=== PATIENT | female | born 1970 | race Caucasian/White ===

== ENCOUNTER 2024-01-24 14:48 | Outpatient (OUT) | payer OTHER, SELFPAY ==
[2024-01-24 15:09] LABS: Hemoglobin 12.4 g/dL (12.0-16.0); Mean Corpuscular HGB Conc 31.8 g/dL (29.9-35.2); Mean Corpuscular Hemoglobin 28.6 pg (26.7-34.0); Mean Corpuscular Volume 89.9 fL (81.0-99.0); Platelet Count 296 10^3/uL (150-450); Red Blood Count 4.34 10^6/uL (4.20-5.40); Red Cell Distribution Width 12.9 % (11.0-15.0); White Blood Count 7.4 10^3/uL (4.0-11.0)
[2024-01-24 15:46] LABS: Alanine Aminotransferase 47 U/L (14-59); Albumin Globulin Ratio 0.9; Albumin Level 3.2 g/dL (3.4-5.0); Alkaline Phosphatase 54 U/L (46-116); Aspartate Amino Transferase 24 U/L (15-37); Bilirubin Direct 0.1 mg/dL (0.0-0.2); Bilirubin Total 0.2 mg/dL (0.2-1.0); Globulin 3.6 g/dL; Total Protein 6.8 g/dL (6.4-8.2)
== END 2024-01-24 14:49 | disposition home or self-care (01) ==
LOC: LAB 14:51
PROVIDERS: PCP Family Medicine; Visit Provider Psychiatry & Neurology Neurology
DX: G35 Multiple sclerosis (principal); G62.9 Polyneuropathy, unspecified; R79.89 Other specified abnormal findings of blood chemistry; G60.9 Hereditary and idiopathic neuropathy, unspecified; Z11.3 Encounter for screening for infections with a predominantly sexual mode of transmission; E53.1 Pyridoxine deficiency; I70.91 Generalized atherosclerosis; D51.3 Other dietary vitamin B12 deficiency anemia; M79.10 Myalgia, unspecified site; E78.5 Hyperlipidemia, unspecified
CPT/HCPCS: 36415; 80076; 85027

== ENCOUNTER 2025-06-25 06:47 | Outpatient (OUT) | payer OTHER, SELFPAY ==
--- OUTSIDE RECORDS SUMMARY | 2025-06-25 06:51 | XMS_ITS | Encounter Summary ---
Author Organization [facility] Address [address] [place] [address] Care Team Providers Care Paunch Trimmer Name Role Phone Vikki Disla MD Primary Care Provider [phone] Encounter Details Date Type Department Care Team ([facility] Contact Info) Description 04/17/2024 External Result Encounter [facility] [address] [address] Sherman Mayfield MD [address] Nawaf Francois [address] [address] Social History Tobacco Use Types Packs/Day Years Used Date Smoking Tobacco: Never Assessed Comments Unknown Sex and Gender Information Value Date Recorded Sex Assigned at Not on file Legal Sex Female 7:24 PM EDT Gender Identity Not on file Sexual Orientation Not on file documented as of this encounter Plan of Treatment Upcoming Encounters Date Type Department Care Team ([facility] Contact Info) Description 10/19/2025 4:15 PM EST Office Visit [facility] [address] [facility] [address] [place] [address] Sherman Mayfield MD [address] Nawaf Francois [address] [id number] documented as of this encounter Procedures Procedure Name Priority Date/Time Associated Diagnosis Comments MR BRAIN W AND WO CONTRAST (ROUTINE) 04/17/2024 1:25 PM EDT documented in this encounter Results * MR brain w and wo contrast routine (04/17/2024 1:25 PM EDT) Anatomical Region Laterality Modality Brain Magnetic Resonan ce 04/17/2024 1:25 PM EDT Narrative 04/17/2024 1:24 PM EDT THIS EXAM WAS PERFORMED AT [facility] MR BRAIN W WO CONT 04/17/2024 10:17 AM INDICATION: MS (multiple sclerosis) COMPARISON: None available. TECHNIQUE: Multiplanar multisequence MR images of the brain were obtained with and without intravenous contrast. Volumetric 3-D series were sent for NeuroQuant analysis. This is generated at an independent workstation, by a third alliance party vendor, to further assess anatomy. Images quality controlled under physician supervision. FINDINGS: BRAIN: There are multiple focal areas of increased FLAIR signal within the subcortical and deep white matter, with some lesions involving the periventricular white matter. No definite callososeptal lesions. No definite diffusion restricting or enhancing lesions. No definite posterior fossa involvement. NeuroQuant analysis demonstrates the lesion count of 14 within the white matter, predominantly the periventricular and deep white matter. VENTRICLES: Normal ventricular size. VASCULATURE: Patent major intracranial arterial vasculature. Patent major dural venous sinuses. ORBITS: Unremarkable. PARANASAL SINUSES: Visualized paranasal sinuses are well-aerated. TEMPORAL BONE: Well-aerated middle ears and visualized mastoid air cells. SOFT TISSUES: The visualized head and neck soft tissues are unremarkable. OSSEOUS STRUCTURES: Normal bone marrow signal. Visualized upper cervical spine is unremarkable. IMPRESSION: Multiple white matter lesions as described without definite current enhancing lesion. Approved by Resident Mandy Segura MD on 04/17/2024 12:27 PM IPraneeth DO have personally reviewed the image(s) and agree with and/or edited the report Finalized by Praneeth Vasques DO on 04/17/2024 1:24 PM Procedure Note Radiology, Radiologist, - 04/17/2024 THIS EXAM WAS PERFORMED AT [facility] MR BRAIN W WO CONT 04/17/2024 10:17 AM INDICATION: MS (multiple sclerosis) COMPARISON: None available. TECHNIQUE: Multiplanar multisequence MR images of the brain were obtainedwith and without intravenous contrast. Volumetric 3-D series were sent for NeuroQuant analysis. This is generatedat an independent workstation, by a third alliance party vendor, to further assessanatomy. Images quality controlled under physician supervision. FINDINGS: BRAIN: There are multiple focal areas of increased FLAIR signal within thesubcortical and deep white matter, with some lesions involving theperiventricular white matter. No definite callososeptal lesions. Nodefinite diffusion restricting or enhancing lesions. No definite posteriorfossa involvement. NeuroQuant analysis demonstrates the lesion count of 14within the white matter, predominantly the periventricular and deep whitematter. VENTRICLES: Normal ventricular size. VASCULATURE: Patent major intracranial arterial vasculature. Patent majordural venous sinuses. ORBITS: Unremarkable. PARANASAL SINUSES: Visualized paranasal sinuses are well-aerated. TEMPORAL BONE: Well-aerated middle ears and visualized mastoid aircells. SOFT TISSUES: The visualized head and neck soft tissues areunremarkable. OSSEOUS STRUCTURES: Normal bone marrow signal. Visualized upper cervicalspine is unremarkable. IMPRESSION: Multiple white matter lesions as described without definite currentenhancing lesion. Approved by Resident Mandy Segura MD on 04/17/2024 12:27 PM IPraneeth DO have personally reviewed the image(s) and agree withand/or edited the report Finalized by Praneeth Vasques DO on 04/17/2024 1:24 PM Sherman Mayfield MD IMG MRI PROCEDURES Final Result documented in this encounter Visit Diagnoses Not on filedocumented in this encounter Care Teams Paunch Trimmer Relationship Specialty Start Date End Date Vikki Disla MD [address] [place] [address] PCP - General Family Medicine 03/19/23 documented as of this encounter
--- OUTSIDE RECORDS SUMMARY | 2025-06-25 06:51 | XMS_ITS | Encounter Summary ---
Author Organization [facility] Address [address] [place] [address] Care Team Providers Care Database Admin Name Role Phone Vikki Disla MD Primary Care Provider [phone] Encounter Details Date Type Department Care Team (Late st Contact Info) Description 08/12/2024 Abstract [facility] [address] [facility] [address] [place] [id number] Vikki Disla MD 112 [facility] [address] [place] [address] Social History Tobacco Use Types Packs/Day Years Used Date Smoking Tobacco: Never Smokeless Tobacco: Never B1300 Health Literacy Answer Date Recor ded How often do you need to hav e someone help you when you read instructions, pamphlets, or other written material from your doctor or pharmacy? Never 07/29/2024 Social Connection and Isolat ion Panel [NHANES] Answer Date Recorded In a typical week, how many times do you talk on the phone with family, friends, or neighbors? Twice a week 07/29/2024 How often do you get togethe r with friends or relatives? Twice a week 07/29/2024 How often do you attend chur ch or yarsani services? More than 4 times per year 07/29/2024 Do you belong to any clubs o r organizations such as muslim groups, unions, fraternal or athletic groups, or school groups? Yes 07/29/2024 How often do you attend meet ings of the clubs or organizations you belong to? More than 4 times per year 07/29/2024 Are you , , di vorced, , never , or living with a partner? 07/29/2024 AUDIT-C Answer Date Recorded Q1: How often do you have a drink containing alcohol? Never 07/29/2024 Q2: How many drinks containi ng alcohol do you have on a typical day when you are drinking? Patient does not drink Q3: How often do you have si x or more drinks on one occasion? Never 07/29/2024 Overall Financial Resource Strain (CARDIA) Answe r Date Recorded How hard is it for you to pa y for the very basics like food, housing, medical care, and heating? Somewhat hard 07/29/2024 [facility] of Occupat ional [facility] - Occupational Stress Questionnaire Answer Date Recorded Do you feel stress - tense, restless, nervous, or anxious, or unable to sleep at night because your mind is troubled all the time - these days? Only a little 07/29/2024 Exercise Vital Sign Answer Date Recorde d On average, how many days pe r week do you engage in moderate to strenuous exercise (like a brisk walk)? Patient declined On average, how many minutes do you engage in exercise at this level? Patient declined 07/29/2024 Hunger Vital Sign Answer Date Recorded Within the past 12 months, y ou worried that your food would run out before you got the money to buy more. Sometimes true Within the past 12 months, t he food you bought just didn't last and you didn't have money to get more. Never true PRAPARE - Transportation Answer Date Re corded In the past 12 months, has l ack of transportation kept you from medical appointments or from getting medications? No 07/12 In the past 12 months, has l ack of transportation kept you from meetings, work, or from getting things needed for daily living? No 07/29/2024 Housing Stability Vital Sign Answer Teto e Recorded In the last 12 months, was t here a time when you were not able to pay the mortgage or rent on time? No 07/29/2024 Number of Times Moved in the Last Year Not on fi le 07/29/2024 At any time in the past 12 m [facility], were you homeless or living in a chcf (including now)? No 07/29/2024 Comments Unknown Sex and Gender Information Value Date Recorded Sex Assigned at Not on file Legal Sex Female 7:24 PM EDT Gender Identity Not on file Sexual Orientation Not on file documented as of this encounter Plan of Treatment Upcoming Encounters Date Type Department Care Team (Late st Contact Info) Description 10/19/2025 4:15 PM EST Office Visit [facility] [address] [facility] [address] [place] [address] Sherman Mayfield MD 4849 [facility] [address] [place], [place] [phone] documented as of this encounter Visit Diagnoses Not on filedocumented in this encounter Care Teams Database Admin Relationship Specialty Start Date End Date Vikki Disla MD 112 [facility] [address] [place], [place] [phone] PCP - General Family Medicine 03/19/23 documented as of this encounter
--- OUTSIDE RECORDS SUMMARY | 2025-06-25 06:51 | XMS_ITS | Clinical Summary ---
Author Organization [facility] tem Address [id number] [address] [place] [address] Care Team Providers Care Transport Manager Name Role Phone Unavailable Primary Care Provider Unavailabl e Allergies Active Allergy Reactions Criticality Noted Date Comments Morphine 04/17/2024 Social History Tobacco Use Types Packs/Day Years Used Date Smoking Tobacco: Never Assessed Comments Unknown Sex and Gender Information Value Date Recorded Sex Assigned at Not on file Legal Sex Female 9:09 AM EDT Gender Identity Not on file Sexual Orientation Not on file Last Filed Vital Signs Vital Sign Reading Time Taken Comments Blood Pressure - - Pulse - - Temperature - - Respiratory Rate - - Oxygen Saturation - - Inhaled Oxygen Concentration - - Weight 90.7 kg (200 lb) 04/17/2024 10:17 AM EDT Height - - Body Mass Index - - Plan of Treatment Health Maintenance Due Date Last Done Comments Depression Screening 1980 Tobacco Screening 1980 Adult BMI Screening 1986 Pap Smear 1989 Zoster (Shingles) Vaccine (1 of 2) 2018 DTaP,Tdap and Td Vaccines (2 - Td or Tdap) 01/03/2019 01/03/2009 Influenza Vaccine 07/12/2025 Medical Devices Not on file Insurance [employer]
--- OUTSIDE RECORDS SUMMARY | 2025-06-25 06:51 | XMS_ITS | Clinical Summary ---
Demographics Address [address] [place] [address] Home Phone Preferred Language en Marital Status Anabaptist Affiliation Unknown Race White Ethnic Group Unknown Author Organization [facility] Address [address] [place] [address] Phone Care Team Providers Care City Sanitarian Name Role Phone Vikki Disla MD Primary Care Provider [phone] Social History Tobacco Use Types Packs/Day Years Used Date Smoking Tobacco: Never Assessed Comments Unknown Sex and Gender Information Value Date Recorded Sex Assigned at Not on file Legal Sex Female 4:00 AM EST Gender Identity Not on file Sexual Orientation Not on file Plan of Treatment Not on file Care Teams City Sanitarian Relationship Specialty Start Date End Date Vikki Disla MD [address] [place] [address] PCP - General 11/18/20
--- OUTSIDE RECORDS SUMMARY | 2025-06-25 06:51 | XMS_ITS | Encounter Summary ---
Author Organization [facility] Address [address] [place] [address] Care Team Providers Care Maintenance Instructor Name Role Phone Vikki Disla MD Primary Care Provider [phone] Encounter Details Date Type Department Care Team (Late st Contact Info) Description 07/27/2024 Abstract [facility] 112 [facility] [address] [place] [phone] Vikki Disla MD 112 [facility] [address] [place] [address] Social History Tobacco Use Types Packs/Day Years Used Date Smoking Tobacco: Never Assessed B1300 Health Literacy Answer Date Recor ded [...] often do you attend chur ch or episcopalian services? More than 4 times per year 07/29/2024 Do you belong to any clubs o r organizations such as presybeterian groups, unions, fraternal or athletic groups, or [...] medical care, and heating? Somewhat hard 07/29/2024 [facility] [place] of Occupat ional Health - Occupational Stress Questionnaire Answer Date Recorded [...] any time in the past 12 m [facility], were you homeless or living in a fdc (including now)? No 07/29/2024 Comments Unknown Sex and Gender Information Value Date Recorded Sex Assigned at Not on file Legal Sex Female 7:24 PM EDT Gender Identity Not on file Sexual Orientation Not on file documented as of this encounter Functional Status * Audit-C Score Answer Date of Assessment Author 0 07/29/2024 2:42 PM EDT Mychart, Generic * Q1: How often do you have a drink containing alcohol? Answer Date of Assessment Author Never 07/29/2024 2:42 PM EDT Mychart, Generic * Q2: How many drinks containing alcohol do you have on a typical day when you are drinking? Answer Date of Assessment Author Patient does not drink 07/29/2024 2:42 PM EDT My chart, Generic * Q3: How often do you have six or more drinks on one occasion? Answer Date of Assessment Author Never 07/29/2024 2:42 PM EDT Mychart, Generic documented as of this encounter Plan of Treatment Upcoming Encounters Date Type Department Care Team (Late st Contact Info) Description 10/19/2025 4:15 PM EST Office Visit [facility] [address] [facility] [address] [place] [address] Sherman Mayfield MD 5321 [facility] [address] [place] [address] documented as of this encounter Visit Diagnoses Not on filedocumented in this encounter Care Teams Maintenance Instructor Relationship Specialty Start Date End Date Vikki Disla MD 112 [facility] [address] [place] [address] PCP - General Family Medicine 03/19/23 documented as of this encounter
--- OUTSIDE RECORDS SUMMARY | 2025-06-25 06:51 | XMS_ITS | Encounter Summary ---
Author Organization [facility] Address [address] [place] [address] Care Team Providers Care Crawler Crane Operator Name Role Phone Vikki Disla MD Primary Care Provider [phone] Encounter Details Date Type Department Care Team (Late st Contact Info) Description 08/21/2024 Abstract [facility] 112 [facility] 110 [place] [phone] Vikki Disla MD 112 [facility] [address] [place] [address] Social History Tobacco Use Types Packs/Day Years [...] often do you attend chur ch or gnosticism services? More than 4 times per year 07/29/2024 Do you belong to any clubs o r organizations such as orthodoxy groups, unions, fraternal or athletic groups, or [...] medical care, and heating? Somewhat hard 07/29/2024 [facility] of Occupat ional [facility] - Occupational Stress Questionnaire Answer Date Recorded [...] any time in the past 12 m [facility], were you homeless or living in a skilled nursing (including now)? No 07/29/2024 Comments Unknown Sex [...] [facility] [address] [facility] [address] [place] [address] Sherman Mayfield MD 6[address] [facility] [address] [place], [place] [phone] documented as of this encounter Visit Diagnoses Not on filedocumented in this encounter Care Teams Crawler Crane Operator Relationship Specialty Start Date End Date Vikki Disla MD 112 [facility] [address] [place], [place] [phone] PCP - General Family Medicine 03/19/23 documented as of this encounter
--- OUTSIDE RECORDS SUMMARY | 2025-06-25 06:51 | XMS_ITS | Clinical Summary ---
Author Organization [facility] Address [address] [place], [place] [id number] Care Team Providers Care Cereal Miller Name Role Phone Unavailable Primary Care Provider Unavailabl e Allergies Active Allergy Reactions Criticality Noted Date Comments Morphine Shortness of Breath 09/15/2008 Medications alendronate sodium(FOSAMAX 70 MG TAB)Indications: Disturbance of skin sensation 1 tab weekly 0 0 06/10/2008 Active gabapentin(NEURO NTIN 400 MG CAP)Indications: Disturbance of skin sensation Take one(1) tablet three times daily., total dose 500 mg po qd 0 09/15/2008 Active gabapentin(NEURO NTIN 100 MG CAP) Take one(1) tablet three times daily. 0 09/15/2008 Active Family History Medical History Relation Comments Cancer Father colon Thyroid Sister migraine [Other] Sister MS [Other] Other maternal cousin Relation Status Comments Father Sister Other Social History Tobacco Use Types Packs/Day Years Used Date Smoking Tobacco: Never Alcohol Use Standard Drinks/Week Comments No 0 (1 standard drink = 0.6 oz pur e alcohol) Comments Unknown Sex and Gender Information Value Date Recorded Sex Assigned at Not on file Legal Sex Female 8:15 AM EST Gender Identity Not on file Sexual Orientation Not on file Occupation Industry Job Start Date Job End Date homemaker Not on file Not on file Not on file Plan of Treatment Health Maintenance Due Date Last Done Comments Anxiety Screening 1986 Depression Screening 1986 HIV Screening 1986 Hepatitis C Screening 1986 DTaP,Tdap,Td Vaccine (1 - Tdap) 1987 Hepatitis B Vaccine (1 of 3 - 19+ 3-dose series) 10/22 Cervical Cancer Screening [address] Colonography 2013 Cologuard (FIT-DNA) 2013 Colonoscopy 2013 Colorectal Cancer Screening 2013 Diabetes Screening 2013 Fecal Occult Blood 2013 Lipid Screening 2013 Sigmoidoscopy 2013 Pneumococcal Vaccine: 50+ (1 of 1 - PCV) 2018 Shingrix Vaccine (1 of 2) 2018 Influenza Vaccine (#1) 2025 Insurance [employer]
--- OUTSIDE RECORDS SUMMARY | 2025-06-25 06:51 | XMS_ITS | Clinical Summary ---
Author Organization [facility] Address [address] [place] [address] Care Team Providers Care Computer Repair Technician Name Role Phone Vikki Disla MD Primary Care Provider [phone] Allergies Active Allergy Reactions Criticality Noted Date Comments Acetaminophen Hallucinations 07/26/2024 Morphine Shortness of breath High 09/15/2008 Other Reaction(s): shortness of breath/ hives Oxycodone Hallucinations 07/26/2024 Oxycodone-Acetaminophen Unknown 04/30/2023 Medications albuterol HFA 90 mcg/act inhalerIndications :Shortness of breath,Wheezing Inhale 2 puffs every 4 (four) hours if needed for wheezing or shortness of breath 18 g 07/30/20 24 025 Active Interferon Beta-1a (Rebif Rebidose) 44 MCG/0.5ML solution auto-injectorIndic ations:MS (multiple sclerosis) ([facility]) Inject 44 mcg under the skin 3 (three) times a week 12 mL 5 11/13/19 25 Active galcanezumab (Emgality) 120 MG/ML auto-injectorIndic ations:Migraine without aura and without status migrainosus, not intractable ADMINISTER 1 ML UNDER THE SKIN MONTHLY 1 mL 3 12/02/19 25 Active modafinil (Provigil) 200 MG tabletIndications: Shift work sleep disorder TAKE A HALF TABLET BY MOUTH EVERY MORNING, MAY INCREASE TO A HALF TABLET BY MOUTH TWICE A DAY NEEDED 30 tablet 5 04/22/20 25 Active ondansetron ODT (Zofran-ODT) 4 MG disintegrating tablet Take 4 mg by mouth Every 4 - 6 hours as needed for nausea 09/13/20 24 Active gabapentin (Neurontin) 400 MG capsuleIndications :Neurogenic pain Take 1 capsule (400 mg) by mouth in the morning and 1 capsule (400 mg) before bedtime. 180 capsule 1 04/22/20 25 Active citalopram (CeleXA) 20 MG tabletIndications: Mood disorder, drug-induced (HCC) Take 1 tablet (20 mg) by mouth Daily 90 tablet 1 04/22/20 25 Active cyclobenzaprine (Flexeril) 10 MG tabletIndications: Cervical paraspinal muscle spasm 2 tabs QHS 60 tablet 1 04/22/20 25 Active baclofen (Lioresal) 10 MG tabletIndications: Cervical paraspinal muscle spasm,MS (multiple sclerosis) (HCC) Take 1 tablet (10 mg) by mouth in the morning and 1 tablet (10 mg) before bedtime. 60 tablet 3 04/22/20 25 025 Active topiramate (Topamax) 50 MG tabletIndications: Migraine without aura, intractable, with status migrainosus Take 50 mg by mouth in the morning and 50 mg before bedtime. 60 tablet 5 06/01/20 25 026 Active Topamax 50 MG tablet 1 (one) time each day at the same time. 025 Discontin ued(Reord er) Active Problems Problem Noted Date Diagnosed Date Dizziness 02/23/2025 Acquired absence of both cervix and uterus 08/11 Elevated liver enzymes 08/11/2024 Liver nodule 08/11/2024 Non morbid obesity due to excess calories 2023 Paresthesia 08/11/2024 Severe acute respiratory syn drome coronavirus 2 (SARS-CoV-2) detected 08/11/2024 Abnormal laboratory test 08/11/2024 COVID-19 08/11/2024 Motion sickness 04/30/2023 MS (multiple sclerosis) 04/29/2023 Assessment & Plan (06/01/2025 5:12 PM EDT): (Continue current regimen.) Labs - CBC, LFTs q March, Nov. - incl now, none in 1 y Cancel 02/2025 MR. Plan redo MR brain spring, WITH comparison. LA ppw. Assessment & Plan (04/20/2025 4:48 PM EDT): See last note. Check if addendum to 04/2024 MR report ([place], comparing against 09/2021 & 02/2010 MR studies) has been done & get report. (Continue current regimen.) Labs - CBC, LFTs q March, Sep. Assessment & Plan (10/20/2024 4:26 PM EST): Send msg to interpreting radiologist (2nd req) - Please compare 04/2024 MR against 09/2021 & 02/2010 MR images (both [facility]) and made addendum to report? (Continue current regimen.) Labs - CBC, LFTs q March, Sep. Assessment & Plan (04/21/2024 2:30 PM EDT): Send msg to interpreting radiologist - could you please compare 04/2024 MR against 09/2021 & 02/2010 MR images (both [facility]) and made addendum to report? (Continue current regimen.) Labs - CBC, LFTs q March, Sep. Assessment & Plan (09/17/2023 4:49 PM EST): (Continue current regimen.) Labs - CBC, LFTs q March, Nov. Assessment & Plan (04/30/2023 4:17 PM EDT): (Continue current regimen.) Labs - CBC, LFTs q March, Sep. Migraine without aura, intractable, with status migrainosus 04/29/2023 Assessment & Plan (06/01/2025 5:12 PM EDT): Incr TPM to 50 bid (Rx written). Pt may take only 1 pill for 3 w, then bid in week 4 of galca. FMLA ppw. Orders: topiramate (Topamax) 50 MG tablet; Take 50 mg by mouth in the morning and 50 mg before bedtime. Assessment & Plan (04/20/2025 4:48 PM EDT): (Continue current regimen.) Assessment & Plan (10/20/2024 4:26 PM EST): (Continue current regimen.) Assessment & Plan (04/21/2024 2:30 PM EDT): (Continue current regimen.) Assessment & Plan (09/17/2023 4:51 PM EST): (Continue current regimen.) Assessment & Plan (04/30/2023 4:17 PM EDT): (Continue current regimen.) CAN (obstructive sleep apnea) 04/29/2023 Overview (04/30/2023): --- borderline. Assessment & Plan (06/01/2025 5:12 PM EDT): Plan redo PSG 2026. (Continue sleep positioning tx.) Assessment & Plan (04/20/2025 4:48 PM EDT): Plan redo PSG 2026. (Continue sleep positioning tx.) Assessment & Plan (10/20/2024 4:26 PM EST): Plan redo PSG 2026. (Continue sleep positioning tx.) Assessment & Plan (04/21/2024 2:28 PM EDT): Plan redo PSG 2026. (Continue sleep positioning tx.) Assessment & Plan (09/17/2023 5:02 PM EST): Plan redo PSG 2026. (Continue sleep positioning tx.) Assessment & Plan (04/30/2023 4:18 PM EDT): Plan redo PSG 2026. Implement sleep positioning tx! Cervical paraspinal muscle spasm 04/29/2023 Assessment & Plan (06/01/2025 5:12 PM EDT): Incr rotation home PT as again demonstrated to pt. Assessment & Plan (04/20/2025 4:48 PM EDT): Incr rotation home PT as again demonstrated to pt. Assessment & Plan (10/20/2024 4:26 PM EST): Incr home PT stefan rotation as demonstrated to pt. Assessment & Plan (04/21/2024 2:31 PM EDT): Incr home PT stefan rotation as demonstrated to pt. Assessment & Plan (09/17/2023 4:54 PM EST): Incr home PT stefan rotation as demonstrated to pt. Assessment & Plan (04/30/2023 4:19 PM EDT): (Continue home PT.) Shift work sleep disorder 04/29/2023 Overview (04/30/2023): --- causing diurnal hypersomnia G47.10. Assessment & Plan (06/01/2025 5:12 PM EDT): (Continue current regimen.) Assessment & Plan (04/20/2025 4:48 PM EDT): (Continue current regimen.) Assessment & Plan (10/20/2024 4:26 PM EST): (Continue current regimen.) Assessment & Plan (04/21/2024 2:30 PM EDT): (Continue current regimen.) Assessment & Plan (09/17/2023 4:50 PM EST): Recommend decreasing citalopram to 1/2 pill due to interaction with modafinil. Assessment & Plan (04/30/2023 4:21 PM EDT): Add modafinil 100, may incr to bid. Neurogenic pain 04/29/2023 Assessment & Plan (06/01/2025 5:12 PM EDT): (Continue current regimen.) Assessment & Plan (04/20/2025 4:48 PM EDT): (Continue current regimen.) Assessment & Plan (10/20/2024 4:26 PM EST): (Continue current regimen.) Assessment & Plan (04/21/2024 2:31 PM EDT): (Continue current regimen.) Assessment & Plan (09/17/2023 4:54 PM EST): (Continue current regimen.) Assessment & Plan (04/30/2023 4:20 PM EDT): (Continue current regimen.) Mood disorder, drug-induced 04/29/2023 Assessment & Plan (04/30/2023 4:19 PM EDT): (Continue current regimen.) - citalopram. Encounters Date Type Department Care Team Description 06/01/2025 2:45 PM EDT Office Visit [facility] [address] [address] [place] [phone] Sherman Mayfield MD Migraine without aura, intractable, with status migrainosus (Primary Dx); Cervical paraspinal muscle spasm; MS (multiple sclerosis) (HCC); Neurogenic pain; Shift work sleep disorder; CAN (obstructive sleep apnea) 06/01/2025 Bamboo flowsheet [facility] [address] [place] [phone] Sherman Mayfield MD 06/01/2025 Travel 05/19/2025 Telephone [facility] [address] [place] [address] Malena Mayfield 05/19/2025 Telephone [facility] [address] [place] [address] Tracy Colón MA 04/20/2025 4:15 PM EDT Office Visit [facility] [address] [facility] [address] [place] [phone] Sherman Mayfield MD Migraine without aura, intractable, with status migrainosus (Primary Dx); Cervical paraspinal muscle spasm; MS (multiple sclerosis) (HCC); Neurogenic pain; CAN (obstructive sleep apnea); Shift work sleep disorder 04/20/2025 Bamboo flowsheet [facility] [address] [place] [phone] Sherman Mayfield MD 04/20/2025 Travel 04/19/2025 1:30 PM EDT Office Visit [facility] [address] [facility] [address] [place] [address] Elicia Lema PA Acute non-recurrent maxillary sinusitis (Primary Dx); Acute right otitis media 04/19/2025 Bamboo flowsheet [facility] [address] [facility] [address] [place] [address] Elicia Lema PA 04/19/2025 Travel 04/17/2025 Refill [facility] [address] [phone] Shobha Chou NP Shift work sleep disorder; Neurogenic pain; Mood disorder, drug-induced (HCC); Cervical paraspinal muscle spasm; MS (multiple sclerosis) (HCC) 03/29/2025 Refill [facility] [address] [phone] Nadeen Baptiste MA Mood disorder, drug-induced (HCC) from Last 3 Months Immunizations Immunization Administration Dates Next Due Tdap 01/03/2009 Social History Tobacco Use Types Packs/Day Years Used Date Smoking Tobacco: Never Smokeless Tobacco: Never Tobacco Cessation:Counseling Given: Yes Alcohol Use Standard Drinks/Week Comments Defer 0 (1 standard drink = 0.6 oz pur e alcohol) [id number] Health Literacy Answer Date Recor ded [...] 07/29/2024 How often do you attend chur or religion services? More than 4 times per year 07/29/2024 Do you belong to any clubs o r organizations such as adventist groups, unions, fraternal or athletic groups, or [...] medical care, and heating? Somewhat hard 07/29/2024 PHQ-2 Answer Date Recorded Patient Health Questionnaire-2 Score 0 04/19/2025 [facility] - Occupational Stress [...] any time in the past 12 m [facility], were you homeless or living in a [place] health care facility (including now)? No 07/29/2024 Comments Unknown Sex and Gender Information Value Date Recorded Sex Assigned at Not on file Legal Sex Female 7:24 PM EDT Gender Identity Not on file Sexual Orientation Not on file Last Filed Vital Signs Vital Sign Reading Time Taken Comments Blood Pressure 108/70 04/19/2025 1:31 PM EDT Pulse 90 04/19/2025 1:31 PM EDT Temperature 36.9 C (98.5 F) 04/19/2025 1:31 PM EDT Respiratory Rate 16 04/19/2025 1:31 PM EDT Oxygen Saturation 97% 04/19/2025 1:31 PM EDT Inhaled Oxygen Concentration - - Weight 90.7 kg (200 lb) 06/01/2025 2:58 PM EDT Height 162.6 cm (5' 4 ) 06/01/2025 2:58 PM EDT Body Mass Index 34.33 06/01/2025 2:58 PM EDT Plan of Treatment Upcoming Encounters Date Type Department Care Team (Late st Contact Info) Description 10/19/2025 4:15 PM EST Office Visit [facility] [address] [place] [address] Sherman Mayfield MD [address] [facility] [address] [place] [address] [phone] Health Maintenance Due Date Last Done Comments CT Colonography 1968 FIT-DNA 1968 FIT 1968 FOBT 1968 Sigmoidoscopy 1968 Influenza Vaccine (#1) 2025 Colonoscopy 12/24/2026 12/24/2016 Colorectal Cancer Screening 12/24/2026 Mammogram Discontinued Procedures Procedure Name Priority Date/Time Associated Diagnosis Comments COLONOSCOPY Routine 12/24/2016 12:00 PM EST from Last 3 Months or Most Recently Relevant to Health Maintenance Results * Colonoscopy (12/24/2016 12:00 PM EST) Anatomical Region Laterality Modality Endoscopy 12/24/2016 12:0 0 PM EST Narrative 12/24/2016 12:00 PM EST PERFORMED AT [facility] LOCATION:[id number] Normal Procedure Note CONVERSION, GENERIC - 03/28/2023 PERFORMED AT [facility] LOCATION:[id number] Normal Vikki Disla MD ENDOSCOPY PROCEDURE ORDERABLES F inal Result from Last 3 Months or Most Recently Relevant to Health Maintenance Insurance [employer] Care Teams Computer Repair Technician Relationship Specialty Start Date End Date Vikki Disla MD [address] [place] [address] [address] [place] [address] PCP - General Family Medicine 03/19/23
--- OUTSIDE RECORDS SUMMARY | 2025-06-25 06:52 | XMS_ITS | CCD ---
Author Organization [facility] Care Team Providers Care Computer Applications Engineer Name Role Phone DR VIKKI TORIBIO Primary Care Unavailable BRYAN, DR KEARA Siddiqui Consulting Unavailable RASHEED MARIEE Admitting Unavailable JAYLENE, RASHEED Attending Unavailable RASHEED MARIEE Consulting Unavailable MARY QUINTANA Attending Unavailable MARY QUITNANA Consulting Unavailable CATARINO, DR PERALES Primary Care Unavailable MARY QUINTANA Admitting Unavailable NOA FLORES Consulting Unavailable RADHA MAYFIELD Attending Unavailable CATARINO, DR PERALES Primary Care Unavailable RADHA MAYFIELD Admitting Unavailable CATARINO, DR PERALES Primary Care Unavailable RADHA MAYFIELD Consulting Unavailable RADHA MAYFIELD Admitting Unavailable RADHA MAYFIELD Attending Unavailable ZIEBER, DR SKYLER Sewell Consulting Unavailable CATARINO, DR PERALES Primary Care Unavailable RADHA MAYFIELD Admitting Unavailable RADHA MAYFIELD Attending Unavailable ARDHA MAYFIELD Unavailable MISC, DR PIRES Admitting Unavailable BRYAN, DR KEARA Siddiqui Consulting Unavailable CATARINO, DR PERALES Primary Care Unavailable MISC, DR PIRES Attending Unavailable MISC, DR PIRES Consulting Unavailable ISABEL, DR RADHA Sewell Consulting Unavailable CATARINO, DR PERALES Primary Care Unavailable JAGDEEP MCGUIRE Admitting Unavailable JAGDEEP MCGUIRE Attending Unavailable JAGDEEP MCGUIRE Consulting Unavailable NOA FLORES Consulting Unavailable Jade Allen Unavailable Unavailable Primary Care Provider UnavailRADHA Varma Referring Unavailable Vikki Toribio MD Primary Care Provider ELICIA MCCANN Attending Unavailable RADHA MAYFIELD Attending Unavailable PATTI NICHOLAS Attending Unavailable RADHA MAYFIELD Attending Unavailable AMBROSE ALTAMIRANO Attending Unavailable RADHA MAYFIELD Attending Unavailable Allergies Allergy Classification Reported Allergen(s) Allergy Type Date of Onset Reaction(s) Facility (1 source) Acetaminophen / oxyCODONE Drug Allergy 07-19-20 15 [facility] (1 source) HYDROmorphone Drug Allergy 07-26-20 15 [facility] (3 sources) Morphine; Translations: [MORPHINE] Drug Allergy 06-16-20 14 shortness of breath/ hives [facility] (1 source) Acetaminophen / oxyCODONE Drug Allergy halucinations [place] [facility] Other (19 sources) Morphine Drug Allergy 09-15-20 08 Shortness of Breath [facility] Work Phone: (18 sources) Acetaminophen Drug Allergy 07-26-20 24 Hallucinations [facility] (18 sources) oxyCODONE Drug Allergy 07-26-20 24 Hallucinations [facility] (17 sources) Acetaminophen / oxyCODONE Drug Allergy 04-30-20 23 Unknown [facility] Medications Current Medications Medication Drug Class(es) Dates Sig (Normalized) Sig (Original) [id number] 200 actuat albuterol 0.09 mg/actuat metered dose inhaler (20 sources) beta2-Adrenergic Agonist Start: 07-30-2024 End: 07-30-2025 take 2 puff(s) by inhalation every four hours for wheezing albuterol HFA 90 mcg/act inhaler Indications: Shortness of breath , Wheezing Inhale 2 puffs every 4 (four) hours if needed for wheezing or shortness of breath 18 g 07/30/2024 07/30/2025 Active Start: 09-06-2021 take 2 puff(s) by in halation four times daily as needed Albuterol Sulfate HFA 108 (90 Base) MCG/ACT 2 puffs Inhalation qid prn Aug, Active amoxicillin 875 mg oral tablet (5 sources) Penicillin-class Antibacterial Start: 04-19-2025 End: 04-29-2025 take 1 tablet by mouth in the morning amoxicillin (Amoxil) 875 MG tablet Indications: Acute non-recurrent maxillary sinusitis , Acute right otitis media Take 1 tablet (875 mg) by mouth in the morning and 1 tablet (875 mg) before bedtime. Do all this for 10 days. 20 tablet 04/19/2025 04/29/2025 Active Start: 11-18-2024 End: 11-28-2024 take 1 tablet by mouth in the morning amoxicillin (Amoxil) 875 MG tablet Indications: Otitis of right ear Take 1 tablet (875 mg) by mouth in the morning and 1 tablet (875 mg) before bedtime. Do all this for 10 days. 20 tablet 11/18/2024 11/28/2024 Active azithromycin 250 mg oral tablet (2 sources) Macrolide Antimicrobial Start: 07-26-2024 Azithromycin (Zithromax) 250 mg tablet Active TAB PO Daily July 26, 2024 12:00am FreeTextSi tablet on the first day, then 1 tablet daily for 4 days Orally Once a day; Note: Source Status: Start; Refills: 0; Qty: 1 pack; Provider: Tiffany Benavidez Start: 09-06-2021 Zithromax 250 MG 2 tablet on the first day, then 1 tablet daily for 4 days Orally Once a day for 5 day(s) Aug, Active baclofen 10 mg oral tablet (20 sources) gamma-Aminobutyric Acid-ergic Agonist Start: 09-14-2024 End: 08-20-2025 take 1 tablet by mouth in the morning baclofen (Lioresal) 10 MG tablet Indications: Cervical paraspinal muscle spasm , MS (multiple sclerosis) (HCC) Take 1 tablet (10 mg) by mouth in the morning and 1 tablet (10 mg) before bedtime. 60 tablet 3 04/22/2025 08/20/2025 Active Start: 09-18-2023 take 1 tablet by zeus th in the morning baclofen (Lioresal) 10 MG tablet Indications: MS (multiple sclerosis) (CMS/HCC) , Cervical paraspinal muscle spasm Take 1 tablet (10 mg) by mouth in the morning and 1 tablet (10 mg) before bedtime. 60 tablet 5 09/18/2023 Active cefdinir 300 mg oral capsule (2 sources) Cephalosporin Antibacterial Start: 07-30-2024 End: 08-09-2024 take 1 capsule by mouth in the morning cefdinir (Omnicef) 300 MG capsule Indications: Acute bilateral otitis media Take 1 capsule (300 mg) by mouth in the morning and 1 capsule (300 mg) before bedtime. Do all this for 10 days. 20 capsule 07/30/2024 08/09/2024 Active citalopram 20 mg oral tablet (20 sources) Serotonin Reuptake Inhibitor Start: 03-29-2025 End: 04-22-2025 take 1 tablet by mouth once daily citalopram (CeleXA) 20 MG tablet Indications: Mood disorder, drug-induced (HCC) Take 1 tablet (20 mg) by mouth Daily 90 tablet 1 04/22/2025 Active Start: 09-14-2024 take 1 tablet by zeus th once daily citalopram (CeleXA) 20 MG tablet Indications: Mood disorder, drug-induced (CMS/HCC) Take 1 tablet (20 mg) by mouth Daily 90 tablet 1 09/14/2024 Active Start: 05-20-2023 take 1 tablet by zeus th once daily citalopram (CeleXA) 20 MG tablet Indications: Mood disorder, drug-induced (CMS/HCC) TAKE 1 TABLET BY MOUTH EVERY DAY 90 tablet 2 05/20/2023 Active cyclobenzaprine hydrochloride 10 mg oral tablet (20 sources) Muscle Relaxant Start: 01-07-2025 End: 04-22-2025 cyclobenzaprine (Flexeril) 10 MG tablet Indications: Cervical paraspinal muscle spasm 2 tabs QHS 60 tablet 1 04/22/2025 Active Start: 07-26-2024 take 1 tablet by zeus th once as needed Cyclobenzaprine Active MG PO July 26, 2024 12:00am FreeTextSi tablet as needed Orally ONCE ADAY; Note: Source Status: Taking; Provider: Tiffany Hansen ( ) Start: 09-18-2023 take 1 tablet by zeus th in the morning, then take 1 tablet by mouth in the evening, then take 1 tablet by mouth at bedtime cyclobenzaprine (Flexeril) 10 MG tablet Indications: Cervical paraspinal muscle spasm Take 1 tablet (10 mg) by mouth in the morning and 1 tablet (10 mg) in the evening and 1 tablet (10 mg) before bedtime. 90 tablet 5 09/18/2023 Active take 1 tablet by zeus th once as needed Cyclobenzaprine HCl 10 MG 1 tablet as needed Orally ONCE ADAY Active dexamethasone 1 mg/ml / tobramycin 3 mg/ml ophthalmic suspension (2 sources) Aminoglycoside Antibacterial, Corticosteroid Start: 07-30-2024 End: 09-22-2024 take 1 drop(s) into the eye(s) every four hours tobramycin-dexAMETHasone (TobraDex) ophthalmic suspension Indications: Acute conjunctivitis of left eye, unspecified acute conjunctivitis type Administer 1 drop into the left eye every 4 (four) hours while awake for 3 days 2.5 mL 07/30/2024 08/02/2024 Active dextromethorphan hydrobromide 15 mg / guaiFENesin 400 mg / pseudoephedrine hydrochloride 60 mg oral tablet (2 sources) alpha-Adrenergic Agonist, Uncompetitive N-mdrbte-S-aspart ate Receptor Antagonist, Sigma-1 Agonist Start: 07-30-2024 End: 08-09-2024 [id number]-[place]-FL 60-15-400 MG tablet Indications: Acute cough Take 1 tablet by mouth in the morning and 1 tablet at noon and 1 tablet in the evening and 1 tablet before bedtime. Do all this for 10 days. 40 tablet 07/30/2024 08/09/2024 Active gabapentin 400 mg oral capsule (20 sources) Anti-epileptic Agent Start: 09-14-2024 End: 04-22-2025 take 1 capsule by mouth in the morning gabapentin (Neurontin) 400 MG capsule Indications: Neurogenic pain Take 1 capsule (400 mg) by mouth in the morning and 1 capsule (400 mg) before bedtime. 180 capsule 1 04/22/2025 Active Start: 07-26-2024 take 1 capsule by [facility] once daily Gabapentin Active 1 CAP PO Daily July 26, 2024 12:00am FreeTextSi capsule Orally Once a day; Note: Source Status: Taking; Provider: Tiffany Hansen ( ) Start: 11-20-2023 take 1 capsule by [facility] twice daily gabapentin (Neurontin) 400 MG capsule Indications: Neurogenic pain TAKE 1 CAPSULE BY MOUTH TWICE DAILY 180 capsule 1 11/20/2023 Active Start: 09-15-2008 gabapentin(TRUE RONTIN 100 MG CAP) Take one(1) tablet three times daily. 0 09/15/2008 Active Start: 09-15-2008 [facility] gabapentin(NEURONTIN 400 MG CAP) Indications: Disturbance of skin sensation Take one(1) tablet three times daily., total dose 500 mg po qd 0 09/15/2008 Active take 1 capsule by [facility] every twenty-four hours Gabapentin 400 MG 1 capsule Orally Once a day Active Comment on above: Take one(1) tablet t hree times daily., total dose 500 mg po qd Take one(1) tablet t hree times daily. 1 ml galcanezumab-gnlm 120 mg/ml auto-injector (20 sources) Start: 07-27-20 End: 12-01-19 inject 1 mL by subcutaneous injection every month galcanezumab (Emgality) 120 MG/ML auto-injector Indications: Migraine without aura and without status migrainosus, not intractable ADMINISTER 1 ML UNDER THE SKIN MONTHLY 1 mL 3 12/02/2024 Active 0.5 ml interferon beta-1a 0.088 mg/ml auto-injector (20 sources) Recombinant Human Interferon beta Start: 11-13-19 End: 05-12-20 inject 44 ug by subcutaneous injection three times weekly Interferon Beta-1a (Rebif Rebidose) 44 MCG/0.5ML solution auto-injector Indications: MS (multiple sclerosis) ([facility]) Inject 44 mcg under the skin 3 (three) times a week 12 mL 5 11/13/2024 Active Start: 02-14-2023 inject 0.5 mL by sub cutaneous injection three times weekly Interferon Beta-1a (Rebif Rebidose) 44 MCG/0.5ML solution auto-injector 0.5 mL Subcutaneous Three times a Week for 30 days 02/14/2023 Active lansoprazole 15 mg delayed release oral capsule (1 source) Proton Pump Inhibitor take 1 capsule by mouth once daily Prevacid 15 MG 1 capsule Orally Once a day Active meclizine hydrochloride 25 mg oral tablet (7 sources) Antiemetic Start : 02-23 End: 05-24 take 1 tablet by mouth three times daily as needed for dizziness meclizine (Antivert) 25 MG tablet Indications: Dizziness Take 1 tablet (25 mg) by mouth 3 (three) times a day as needed for dizziness 30 tablet 2 02/23/2025 05/24/2025 Active methylPREDNISolone acetate 20 mg/ml injectable suspension (7 sources) Corticosteroid Start : 07-26 End: 10-20 methylPREDNISolone Acetate (DEPO-Medrol) 20 MG/ML injection EVERY 4 WEEKS 07/26/2024 Active Start: 11-29-2019 Medrol (Kota) 4 MG half of daily dose in the morning with food and the rest at night with food Orally Nov, Not-Taking modafinil 200 mg oral tablet (20 sources) Sympathomimetic-like Agent Start: 06-18-2024 End: 04-22-2025 take 0.5 tablet by mouth once daily in the morning as needed, then take 0.5 tablet by mouth twice daily as needed modafinil (Provigil) 200 MG tablet Indications: Shift work sleep disorder TAKE A HALF TABLET BY MOUTH EVERY MORNING, MAY INCREASE TO A HALF TABLET BY MOUTH TWICE A DAY NEEDED 30 tablet 5 04/22/2025 Active ondansetron 4 mg oral tablet (8 sources) Serotonin-3 Receptor Antagonist Start: 11-18-2024 End: 11-25-2024 take 1 tablet by mouth every eight hours as needed for nausea and vomiting and nausea and nausea ondansetron (Zofran) 4 MG tablet Indications: Nausea Take 1 tablet (4 mg) by mouth every 8 (eight) hours if needed for nausea or vomiting for up to 7 days 20 tablet 11/18/2024 11/25/2024 Active Start: 09-13-2024 take 1 tablet by zeus th every four to six hours as needed for nausea ondansetron ODT (Zofran-ODT) 4 MG disintegrating tablet Take 4 mg by mouth Every 4 - 6 hours as needed for nausea 09/13/2024 Active topiramate 50 mg oral tablet (20 sources) Start: 06-01-2025 End: 11-28-2025 take 1 tablet by mouth in the morning topiramate (Topamax) 50 MG tablet Indications: Migraine without aura, intractable, with status migrainosus Take 50 mg by mouth in the morning and 50 mg before bedtime. 60 tablet 5 06/01/2025 11/28/2025 Active Start: 07-26-2024 take 25 mg by mouth once daily Topiramate Active 25 MG PO Daily July 26, 2024 12:00am Topiramate Activ e Completed/Discontinued Medications Medication Drug Class(es) Dates Sig (Normalized) Sig (Original) alendronic acid 70 mg oral tablet (1 source) Bisphosphonate Start: 06-10-2008 alendronate sodium(FOSAMAX 70 MG TAB) Indications: Disturbance of skin sensation 1 tab weekly 0 0 06/10/2008 Active Comment on above: 1 tab weekly fluticasone propionate 0.05 mg/actuat metered dose nasal spray (1 source) Corticosteroid Start: 11-29-2019 take 1 spray(s) nasal route once daily Fluticasone Propionate 50 MCG/ACT 1 spray in each nostril Nasally Once a day for 21 days Nov, Not-Taking predniSONE 20 mg oral tablet (8 sources) Start: 07-30-2024 End: 10-20-2024 predniSONE (Deltasone) 20 MG tablet Indications: Shortness of breath , Wheezing 3 tabs x 2 days, 2 tabs x 2 days, 1 1/2 x 2 days, 1 tab x 2 days, 1/2 tab x 2 days then stop 16 tablet 07/31/2024 10/20/2024 Discontinued Start: 07-26-2024 take 1 tablet by zeus th twice daily Prednisone Active 1 TAB PO Twice daily July 26, 2024 12:00am FreeTextSi tablet Orally bid; Note: Source Status: Start; Refills: 0; Qty: 10 Tablet; Provider: Tiffany Benavidez Start: 07-26-2024 take 2 tablets by mo uth once daily, then take 1 tablet by mouth once daily Prednisone Active 0 PO .COMPLEX 9 6 July 26, 2024 12:00am Take 2 tabs po daily x 3 days, then take 1 tab po daily x 3 days Start: 09-06-2021 take 1 tablet by zeus th every twelve hours predniSONE 20 MG 1 tablet Orally bid for 5 day(s) Aug, Active Problems Active Problems Problem Classification Problem Date Documented Da te Episodic/Chronic Disorders of lipid metabolism (1 source) Hyperlipidemia, unspecified; Translations: [HYPERLIPIDEMIA UNSPECIFIED] Onset: 09-29-2021 Chronic Epilepsy; convulsions (4 sources) Epilepsy, unspecified, not intractable, without status epilepticus; Translations: [EPILEPSY UNS NOT INTRACT W/O SE] Onset: 09-22-2021 Chronic Headache; including migraine (20 sources) Refractory migraine without aura; Translations: [Migraine without aura, intractable, with status migrainosus] Onset: 04-29-2023 09-17-2023 Chronic Headache; including migraine (1 source) Headache; including migraine; Translations: [HEADACHE UNSPECIFIED] Onset: 09-29-2021 Multiple sclerosis (20 sources) Multiple sclerosis; Translations: [Multiple sclerosis] Onset: 10-02-2021 Chronic Nausea and vomiting (3 sources) Nausea; Translations: [Nausea] 11-18-2024 Episodic Other connective tissue disease (20 sources) Spasm of cervical paraspinous muscle; Translations: [Other muscle spasm] Onset: 04-29-2023 04-29-2023 Episodic Other connective tissue disease (20 sources) Neurogenic pain; Translations: [Neuralgia and neuritis, unspecified] Onset: 04-29-2023 04-29-2023 Episodic Other liver diseases (18 sources) Nodule of liver; Translations: [Other specified diseases of liver] Onset: 08-11-2024 08-11-2024 Chronic Other nervous system disorders (1 source) Polyneuropathy, unspecified; Translations: [POLYNEUROPATHY UNSPECIFIED] Onset: 09-29-2021 Chronic Other nervous system disorders (1 source) Hereditary and idiopathic neuropathy, unspecified; Translations: [HEREDITARY IDIOPATH NEUROPATHY UNS] Onset: 09-29-2021 Chronic Other nervous system disorders (20 sources) Circadian rhythm sleep disorder of shift work type; Translations: [Circadian rhythm sleep disorder, shift work type] Onset: 04-29-2023 04-30-2023 Chronic Other nutritional; endocrine; and metabolic disorders (1 source) Body mass index 30+ - obesity; Translations: [Body mass index (BMI) 32.0-32.9, adult] Chronic Other nutritional; endocrine; and metabolic disorders (17 sources) Obesity caused by energy imbalance; Translations: [Other obesity due to excess calories] Onset: 08-11-2024 08-11-2024 Chronic Other upper respiratory infections (2 sources) Acute maxillary sinusitis; Translations: [Acute maxillary sinusitis, unspecified] 04-19-2025 Episodic Otitis media and related conditions (6 sources) Acute bilateral otitis media ; Translations: [Otitis media, unspecified, bilateral] 07-30-2024 Episodic Peripheral and visceral atherosclerosis (1 source) Generalized atherosclerosis; Translations: [GENERALIZED ATHEROSCLEROSIS] Onset: 09-29-2021 Chronic Residual codes; unclassified (4 sources) Obstructive sleep apnea (adult) (pediatric); Translations: [OBSTRUCTIVE SLEEP APNEA] Onset: 03-22-2022 Chronic Residual codes; unclassified (20 sources) Obstructive sleep apnea syndrome; Translations: [Obstructive sleep apnea (adult) (pediatric)] Onset: 04-29-2023 04-30-2023 Chronic Past or Other Problems Problem Classification Problem Date Documented Da te Episodic/Chronic Conditions associated with dizziness or vertigo (10 sources) Dizziness; Translations: [Dizziness and giddiness] Onset: 02-23-2025 02-23-2025 Episodic Deficiency and other anemia (1 source) Other dietary vitamin B12 deficiency anemia; Translations: [OTH DIETARY VITAMIN B12 DEF ANEMIA] Onset: 09-29-2021 Episodic E Codes: Fall (1 source) Fall on same level due to ice and snow, initial encounter; Translations: [FALL SAME LEVEL D/T ICE SNOW INIT] Onset: 01-02-2022 Episodic E Codes: Struck by; against (1 source) Other cause of strike by thrown, projected or falling object, initial encounter; Translations: [OTH CAUSE STRIK THRWN/FALL OBJ INIT] Onset: 07-11-2021 Episodic Fever of unknown origin (1 source) Fever, unspecified; Translations: [Fever, unspecified fever cause R50.9] Onset: 09-06-2021 Resolved: 09-06-2021 Episodic Immunizations and screening for infectious disease (2 sources) Encounter for screening for infections with a predominantly sexual mode of transmission; Translations: [Contact with and (suspected) exposure to other viral communicable diseases] Onset: 09-06-2021 Resolved: 09-06-2021 Episodic Inflammation; infection of eye (except that caused by tuberculosis or sexually transmitteddisease) (2 sources) Acute conjunctivitis of left eye; Translations: [Unspecified acute conjunctivitis, left eye] 07-30-2024 Episodic Nutritional deficiencies (1 source) Pyridoxine deficiency; 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 DEFICIENCY] Onset: 09-29-2021 Episodic Other aftercare (1 source) Other usp (current) drug therapy; Translations: [OTH GIS MAPPING TECHNICIAN CURRENT DRUG THERAPY] Onset: 01-08-2022 Episodic Other connective tissue disease (1 source) Myalgia, unspecified site; Translations: [MYALGIA UNSPECIFIED SITE] Onset: 09-29-2021 Episodic Other connective tissue disease (3 sources) Pain in left foot; Translations: [PAIN IN LEFT FOOT] Onset: 07-08-2021 Episodic Other fractures (4 sources) Unspecified fracture of T5-T6 vertebra, initial encounter for closed fracture; Translations: [UNS FX T5-T6 VERT INITIAL CLOS FX] Onset: 01-12-2022 Episodic Other fractures (1 source) Unspecified fracture of T7-T8 vertebra, initial encounter for closed fracture; Translations: [UNS FX T7-T8 VERT INITIAL CLOS FX] Onset: 01-16-2022 Episodic Other fractures (1 source) Collapsed vertebra, not elsewhere classified, thoracic region, initial encounter for fracture; Translations: [COLLAPSED VERT NEC THOR INIT ENC] Onset: 01-16-2022 Episodic Other gastrointestinal disorders (1 source) Heartburn; Translations: [Heartburn] Episodic Other injuries and conditions due to external causes (1 source) History of falling; Translations: [HISTORY OF FALLING] Onset: 01-08-2022 Episodic Other injuries and conditions due to external causes (20 sources) Motion sickness; Translations: [Motion sickness, initial encounter] Onset: 04-30-2023 04-30-2023 Episodic Other liver diseases (17 sources) Elevated liver enzymes level; Translations: [Abnormal levels of other serum enzymes] Onset: 08-11-2024 08-11-2024 Episodic Other lower respiratory disease (2 sources) Dyspnea; Translations: [Shortness of breath] 07-30-2024 Episodic Other lower respiratory disease (2 sources) Cough; Translations: [Acute cough] 07-30-2024 Episodic Other lower respiratory disease (2 sources) Wheezing; Translations: [Wheezing] 07-30-2024 Episodic Other nervous system disorders (17 sources) Paresthesia; Translations: [Paresthesia of skin] Onset: 08-11-2024 08-11-2024 Episodic Other screening for suspected conditions (not mental disorders or infectious disease) (2 sources) Abnormal findings on diagnostic imaging of other parts of musculoskeletal system; Translations: [Other specified abnormal findings of blood chemistry] Onset: 09-29-2021 Episodic Residual codes; unclassified (17 sources) Acquired absence of cervix and uterus; Translations: [Acquired absence of both cervix and uterus] Onset: 08-11-2024 08-11-2024 Episodic Spondylosis; intervertebral disc disorders; other back problems (4 sources) Dorsalgia, unspecified; Translations: [DORSALGIA UNSPECIFIED] Onset: 01-06-2022 Episodic Substance-related disorders (20 sources) Drug-induced mood disorder; Translations: [Other psychoactive substance use, unspecified with psychoactive substance-induced mood disorder] Onset: 04-29-2023 04-29-2023 Episodic Superficial injury; contusion (6 sources) Contusion of lower back and pelvis, initial encounter; Translations: [Contusion of unspecified back wall of thorax, initial encounter] Onset: 07-11-2021 Episodic Viral infection (20 sources) Disease caused by 2019-nCoV; Translations: [COVID-19] Onset: 08-11-2024 07-26-2024 Episodic Viral infection (1 source) COVID-19; Translations: [COVID-19 U07.1] Onset: 09-06-2021 Resolved: 09-06-2021 Results Test Name Value Interpretation Reference Range Facility No Panel InformationOrdered By: Juliana Causey on 07-26-2024 COVID Antigen (POC) [facility] MR BRAIN W WO CONTon 024 MR BRAIN W WO CONT MR BRAIN W WO CONT MR BRAIN W WO CONT 04/17/2024 10:17 AM INDICATION: MS (multiple sclerosis) COMPARISON: None available. TECHNIQUE: Multiplanar multisequence MR images of the brain were obtained with and without intravenous contrast. Volumetric 3-D series were sent for NeuroQuant analysis. This is generated at an independent workstation, by a third democrat vendor, to further assess anatomy. Images quality [...] Mandy Segura MD on 04/17/2024 12:27 PM Praneeth Boykin DO have personally reviewed the image(s) and agree with and/or edited the report Finalized by Praneeth Vasques DO on 04/17/2024 1:24 PM Normal [facility] MRI TSPINE WO CONon 01-13-20 MRI TSPINE WO CON EXAMINATION: MRI TSPINE WO CON HISTORY: Compression fracture of thoracic spine COMPARISON: 01/06/2022 TECHNIQUE: A variety of imaging planes and parameters were utilized for visualization of suspected pathology. FINDINGS: CRANIOCERVICAL AREA: Cerebellar tonsils lie at the 6 mm below the foramen magnum PARASPINAL AREA: Normal with no visible mass. BONES: Normal alignment of the thoracic vertebral bodies with no acute fracture or spondylolisthesis. Anterior wedging of the T6 and T7 vertebral bodies appears to be chronic or physiologic. Increased T1 and T2 signal noted along the inferior endplate of the L1 vertebral body, Modic 2 changes are favored with no associated abnormal STIR signal CORD: Normal caliber, contour, and signal intensity. DISC LEVELS: Posterior broad-based disc protrusion up to 2.3 mm T7-T8. Mild posterior disc protrusions T8-T9 T10-T11 and T11-T12. No central or foraminal stenosis IMPRESSION: Chronic/physiologic wedging of the T6 and T7 vertebral bodies with no acute fracture Modic 2 inflammatory changes lower endplate of L1 Electronically authenticated by: KEARA ADAMS Date: 2022-01-12 14:53 Normal [facility] XR CHEST 1 Von 12-30-2021 XR CHEST 1 V EXAM: XR CHEST 1 V HISTORY: The patient is a 51-year-old female who fell yesterday. COMPARISON: None. FINDINGS: The lungs are well-inflated and relatively clear except for some atelectasis at the left lung base. There are no confluent airspace infiltrates, pleural effusions, or pneumothoraces. The heart and mediastinum are within normal limits. The trachea is midline. IMPRESSION: No acute cardiopulmonary abnormalities. Electronically authenticated by: NOA FLORES Date: 2021-12-30 19:16 Normal [facility] XR LSPINE 2_3 VIEWSon 2021 XR LSPINE 2_3 VIEWS EXAM: XR LSPINE 2_3 VIEWS HISTORY: The patient is a 51-year-old female with back pain after falling yesterday. COMPARISON: None. FINDINGS: The lumbar spine is radiographically negative with no evidence of fracture, loss of vertebral body height, disc space narrowing, or malalignment. The sacroiliac joints are maintained. IMPRESSION: Negative. Electronically authenticated by: NOA FLORES Date: 2021-12-30 19:15 Normal [facility] MRI BRAIN WO W CONon 021 MRI BRAIN WO W CON EXAMINATION: MRI BRAIN WO W CON HISTORY: Multiple sclerosis ; new onset tremors COMPARISON: CT head without contrast 08/30/2020 (no prior MRI studies) TECHNIQUE: A variety of imaging planes and parameters were utilized for visualization of suspected pathology. Images were performed without and with Dotarem contrast. FINDINGS: CEREBRUM: Several small T2 hyperintensities within the deep white matter adjacent the posterior horns and cephalad to the bodies of the lateral ventricles. No enhancement of these areas, but 3 of the areas demonstrate restricted diffusion (2 mm the right postcentral gyrus, and 1 near the left precentral gyrus). No edema, hemorrhage, mass, acute infarction, or inappropriate atrophy. CEREBELLUM: Cerebellar tonsils extend to, but not below, the foramen magnum. No edema, hemorrhage, mass, acute infarction, or inappropriate atrophy. BRAINSTEM: No edema, hemorrhage, mass, acute infarction, or inappropriate atrophy. CSF SPACES: Ventricles, cisterns, and sulci are appropriate for age. No hydrocephalus, subarachnoid hemorrhage, or mass. SKULL: No mass or other significant visible lesion. SINUSES: Limited views demonstrate no significant mucosal thickening or fluid. ORBITS: Limited views are unremarkable. OTHER: No abnormal meningeal or parenchymal enhancement. IMPRESSION: 1. Several T2 hyperintensities within the deep white matter which are nonspecific but are compatible with multiple sclerosis. No enhancement of these areas as would typically seen with active demyelination, however, there is restricted diffusion of 3 the lesions suggesting at least a component of progressing/active demyelination. Electronically authenticated by: SKYLER FIGUEREDO Date: 2021-10-03 15:52 Normal [facility] CBC AUTO DIFFon 09-22-2021 BASO # 0.1 103/ul Normal 0.0-0.1 [facility] Comment on above: Performed By: #### C BC #### [facility] [address] [place] [address] Dr. Olivia King Basophils/100 WBC (Bld) 0.4 % Normal 0.2-2.0 [facility] Comment on above: Performed By: #### C BC #### [facility] [address] [place] [address] Dr. Olivia King EO # 0.0 103/ul Normal 0.0-0.7 [facility] Comment on above: Performed By: #### C BC #### [facility] [address] [place] [address] Dr. Olivia King Eosinophils/100 WBC (Bld) 0.2 % Critically low 0.9-7.0 [facility] Comment on above: Performed By: #### C BC #### [facility] [address] [place] [address] Dr. Olivia King Erythrocyte distribution width (RBC) [Ratio] 12.6 % Normal 11.0-15.0 [facility] Comment on above: Performed By: #### C BC #### [facility] [address] [place] [address] Dr. Olivia King Hematocrit (Bld) [Volume fraction] 42.3 % Normal 36.0-48.0 [facility] Comment on above: Performed By: #### C BC #### [facility] [address] [place] [address] Dr. Olivia King Hemoglobin (Bld) [Mass/Vol] 13.8 g/dL Normal 12.0-16.0 [facility] Comment on above: Performed By: #### C BC #### [facility] [address] [place] [address] Dr. Olivia King IG # 0.05 10e3/ul Critically high 0.00-0.03 [facility] Comment on above: Performed By: #### C BC #### [facility] [address] [place] [address] Dr. Olivia King IG % 0.4 % Normal 0.0-0.5 [facility] Comment on above: Performed By: #### C BC #### [facility] [address] [place] [address] Dr. Olivia King LYMPH # 3.3 103/ul Normal 1.2-3.8 [facility] Comment on above: Performed By: #### C BC #### [facility] [address] [place] [address] Dr. Olivia King Lymphocytes/100 WBC (Bld) 28.4 % Normal 20.5-60.0 [facility] Comment on above: Performed By: #### C BC #### [facility] [address] [place] [address] Dr. Olivia King MANUAL DIFF REQ NO Normal [facility] Comment on above: Performed By: #### C BC #### [facility] [address] [place] [address] Dr. Olivia King MCH (RBC) [Entitic mass] 28.6 pg Normal 26.7-34.0 [facility] Comment on above: Performed By: #### C BC #### [facility] [address] [place] [address] Dr. Olivia King MCHC (RBC) [Mass/Vol] 32.6 g/dL Normal 29.9-35.2 [facility] Comment on above: Performed By: #### C BC #### [facility] [address] [place] [address] Dr. Olivia King MCV (RBC) [Entitic vol] 87.6 fL Normal 81.0-99.0 [facility] Comment on above: Performed By: #### C BC #### [facility] [address] [place] [address] Dr. Olivia Knig MONO # 0.8 103/ul Normal 0.3-0.8 [facility] Comment on above: Performed By: #### C BC #### [facility] [address] [place] [address] Dr. Olivia King Monocytes/100 WBC (Bld) 6.8 % Normal 1.7-12.0 [facility] Comment on above: Performed By: #### C BC #### [facility] [address] [address] [address] Olivia King NEUT # 7.3 103/ul Critically high 1.4-6.5 [facility] Comment on above: Performed By: #### C BC #### [facility] [address] [address] [address] Olivia King Neutrophils/100 WBC (Bld) 63.8 % Normal 43.0-75.0 [facility] Comment on above: Performed By: #### C BC #### [facility] [address] [address] [address] Olivia King Platelet mean volume (Bld) [Entitic vol] 9.6 fL Normal 9.5-13.5 [facility] Comment on above: Performed By: #### C BC #### [facility] [address] [address] [address] Olivia King PLT 426 103/ul Normal 150-450 [facility] Comment on above: Performed By: #### C BC #### [facility] [address] [address] [address] Olivia King RBC 4.83 106/ul Normal 4.20-5.40 [facility] Comment on above: Performed By: #### C BC #### [facility] [address] [address] [address] Olivia King WBC 11.5 103/ul Critically high 4.0-11.0 [facility] Comment on above: Performed By: #### C BC #### [facility] [address] [address] [address] Olivia Kign LIVER PROFILEon 09-22-2021 Albumin [Mass/Vol] 3.7 g/dL Normal 3.5-5.0 [facility] Comment on above: Performed By: #### L GARRY #### [facility] [address] [address] [address] Olivia King Albumin/Globulin [Mass ratio] 1.0 {ratio} Normal [facility] Comment on above: Performed By: #### L IVER #### [facility] [address] [address] [address] Olivia King ALP [Catalytic activity/Vol] 51 U/L Normal 38-126 [facility] Comment on above: Performed By: #### L IVER #### [facility] [address] [address] [address] Olivia King ALT [Catalytic activity/Vol] 49 U/L Normal 9-52 [facility] Comment on above: Performed By: #### L IVER #### [facility] [address] [address] [address] Olivia King AST [Catalytic activity/Vol] 25 U/L Normal 14-36 [facility] Comment on above: Performed By: #### L IVER #### [facility] [address] [place] [address] Dr. Olivia King BILI, CONJUGATED 0.1 mg/dL Normal 0.0-0.3 [facility] Comment on above: Performed By: #### L IVER #### [facility] [address] [place] [address] Dr. Olivia King Bilirubin [Mass/Vol] 0.3 mg/dL Normal 0.2-1.3 [facility] Comment on above: Performed By: #### L IVER #### [facility] [address] [place] [address] Dr. Olivia King Globulin (S) [Mass/Vol] 3.7 g/dL Normal T [facility] Comment on above: Performed By: #### L IVER #### [facility] [address] [address] [address] Olivia King Protein [Mass/Vol] 7.4 g/dL Normal 6.1-8.2 [facility] Comment on above: Performed By: #### L IVER #### [facility] [address] [address] [address] Olivia King XR FOOT LT MIN 3 VIEWSon XR FOOT LT MIN 3 VIEWS EXAM: XR FOOT LT MIN 3 VIEWS HISTORY: The patient is a 50-year-old female with left foot pain after crush injury 4 days ago. COMPARISON: None. FINDINGS: The left foot is radiographically negative with no evidence of fracture, dislocation, joint space narrowing, or other osseous or articular abnormalities. IMPRESSION: Negative. Electronically authenticated by: NOA FLORES Date: 2021-07-08 23:53 Normal [facility] Vital Signs Date Time Vital Sign Value Performing Clinician Facility 06-01-2025 14:58-0400 Body height 162.6 cm Radha Chaparro FITZGERALD Work Phone: [facility] 06-01-2025 14:58-0400 Body mass index (BMI) [Ratio] 34.33 kg/m2 Radha Chaparro FITZGERALD Work Phone: [facility] 06-01-2025 14:58-0400 Body weight 90.72 kg Radha Chaparro FITZGERALD Work Phone: [facility] 04-20-2025 16:39-0400 Body height 160 cm Radha Chaparro FITZGERALD Work Phone: [facility] 04-20-2025 16:39-0400 Body mass index (BMI) [Ratio] 35.96 kg/m2 Radha Chaparro FITZGERALD Work Phone: [facility] 04-20-2025 16:39-0400 Body weight 92.08 kg Radha Chaparro FITZGERALD Work Phone: [facility] 04-19-2025 13:31-0400 Body height 160 cm Elicia Mccann PA Work Phone: [facility] 04-19-2025 13:31-0400 Body mass index (BMI) [Ratio] 36 kg/m2 Elicia Hemmer PA Work Phone: [facility] 04-19-2025 13:31-0400 Body temperature 98.49 [degF] Elicia Hemmer PA Work Phone: [facility] 04-19-2025 13:31-0400 Body weight 92.17 kg Elicia Hemmer PA Work Phone: [facility] 04-19-2025 13:31-0400 Diastolic blood pressure 70 mm[Hg] Elicia Hemmer PA Work Phone: [facility] 04-19-2025 13:31-0400 Heart rate 90 /min Elicia Hemmer PA Work Phone: [facility] 04-19-2025 13:31-0400 Respiratory rate 16 /min Elicia Hemmer PA Work Phone: [facility] 04-19-2025 13:31-0400 SaO2% (BldA) [Mass fraction] 97 % Elicia Hemmer PA Work Phone: [facility] 04-19-2025 13:31-0400 Systolic blood pressure 108 mm[Hg] Elicia Hemmer PA Work Phone: [facility] 11-18-2024 08:43-0500 Body height 160 cm Ambrose Altamirano CONTRACT RECRUITER Work Phone: [facility] 11-18-2024 08:43-0500 Body mass index (BMI) [Ratio] 36.49 kg/m2 Ambrose Altamirano CONTRACT RECRUITER Work Phone: [facility] 11-18-2024 08:43-0500 Body weight 93.44 kg Ambrose Altamirano CONTRACT RECRUITER Work Phone: [facility] 11-18-2024 08:43-0500 Diastolic blood pressure 80 mm[Hg] Ambrose Altamirano CONTRACT RECRUITER Work Phone: [facility] 11-18-2024 08:43-0500 Heart rate 89 /min Amborse Altamirano CONTRACT RECRUITER Work Phone: [facility] 11-18-2024 08:43-0500 Respiratory rate 16 /min Ambrose Altamirano CONTRACT RECRUITER Work Phone: [facility] 11-18-2024 08:43-0500 SaO2% (BldA) [Mass fraction] 98 % Ambrose Altamirano CONTRACT RECRUITER Work Phone: [facility] 11-18-2024 08:43-0500 Systolic blood pressure 118 mm[Hg] Ambrose Altamirano CONTRACT RECRUITER Work Phone: [facility] 10-20-2024 15:51-0500 Body height 160 cm Radha Mayfield MD Work Phone: [facility] 10-20-2024 15:51-0500 Body mass index (BMI) [Ratio] 35.43 kg/m2 Radha Chaparro FITZGERALD Work Phone: [facility] 10-20-2024 15:51-0500 Body weight 90.72 kg Radha Chaparro FITZGERALD Work Phone: [facility] 07-30-2024 13:57-0400 Body height 160 cm Patti Nicholas CONTRACT RECRUITER Work Phone: [facility] 07-30-2024 13:57-0400 Body mass index (BMI) [Ratio] 35.43 kg/m2 Patti Nicholas CONTRACT RECRUITER Work Phone: [facility] 07-30-2024 13:57-0400 Body temperature 98.01 [degF] Patti Nicholas CONTRACT RECRUITER Work Phone: [facility] 07-30-2024 13:57-0400 Body weight 90.72 kg Patti Nicholas CONTRACT RECRUITER Work Phone: [facility] 07-30-2024 13:57-0400 Diastolic blood pressure 84 mm[Hg] Patti Nicholas CONTRACT RECRUITER Work Phone: [facility] 07-30-2024 13:57-0400 Heart rate 98 /min Patti Nicholas CONTRACT RECRUITER Work Phone: [facility] 07-30-2024 13:57-0400 SaO2% (BldA) [Mass fraction] 97 % Patti Nicholas CONTRACT RECRUITER Work Phone: [facility] 07-30-2024 13:57-0400 Systolic blood pressure 136 mm[Hg] Patti Nicholas CONTRACT RECRUITER Work Phone: [facility] 07-26-2024 10:33-0400 Body height 162.56 cm [facility] 07-26-2024 10:33-0400 Body mass index (BMI) [Ratio] 35.4 kg/m2 [facility] 07-26-2024 10:33-0400 Body temperature 97.1 [degF] [facility] 07-26-2024 10:33-0400 Body weight 93.49 kg [facility] 07-26-2024 10:33-0400 Diastolic blood pressure 82 mm[Hg] [facility] 07-26-2024 10:33-0400 Heart rate 84 /min [facility] 07-26-2024 10:33-0400 Respiratory rate 18 /min [facility] 07-26-2024 10:33-0400 SaO2% (BldA) [Mass fraction] 93 % [facility] 07-26-2024 10:33-0400 Systolic blood pressure 123 mm[Hg] [facility] 09-06-2021 18:30-0400 Body height 162.56 cm Jade Allen Other [id number] [facility] [employer] Other 09-06-2021 18:30-0400 Body mass index (BMI) [Ratio] 34.33 kg/m2 Jade Levymond Other [employer] Other 09-06-2021 18:30-0400 Body temperature 97.9 [degF] Jade Allen Other [employer] Other 09-06-2021 18:30-0400 Body weight 90.72 kg Jade Allen Other [employer] Other 09-06-2021 18:30-0400 Respiratory rate 18 /min Jade Allen Other [employer] Other 09-06-2021 18:30-0400 SaO2% (BldA) [Mass fraction] 97 % Jade Levymond Other [employer] Other Encounters Encounter Date Encounter Type Care Provider Facility Start: 06-01-2025 End: 06-01-2025 ambulatory RADHA D BEJ Not Available Start: 06-01-2025 End: 06-01-2025 Office outpatient visit 25 minutes Radha D Bej MD Work Phone: [facility] Comment on above: Migraine without aur a, intractable, with status migrainosus (Primary Dx); Cervical paraspinal muscle spasm; MS (multiple sclerosis) (HCC); Neurogenic pain; Shift work sleep disorder; CAN (obstructive sleep apnea) Start: 06-01-2025 End: 06-01-2025 Bamboo flowsheet Radha Mayfield MD Work Phone: [facility] Start: 06-01-2025 End: 06-01-2025 Bamboo flowsheet Radha Mayfield MD Work Phone: [facility] Start: 04-20-2025 End: 04-20-2025 Office outpatient visit 15 minutes Radha Mayfield MD Work Phone: [facility] Comment on above: Migraine without aur a, intractable, with status migrainosus (Primary Dx); Cervical paraspinal muscle spasm; MS (multiple sclerosis) (HCC); Neurogenic pain; CAN (obstructive sleep apnea); Shift work sleep disorder Start: 04-20-2025 End: 04-20-2025 ambulatory RADHA MAYFIELD Not Available Start: 04-20-2025 End: 04-20-2025 Bamboo flowsheet Radha Mayfield MD Work Phone: [facility] Start: 04-20-2025 End: 04-20-2025 Bamboo flowsheet Radha Mayfield MD Work Phone: [facility] Start: 04-19-2025 End: 04-19-2025 Bamboo flowsheet Elicia HUERTA Work Phone: [facility] Start: 04-19-2025 End: 04-19-2025 Bamboo flowsheet Elicia HUERTA Work Phone: [facility] Start: 04-19-2025 End: 04-19-2025 Office outpatient visit 15 minutes Elicia HUERTA Work Phone: [facility] Comment on above: Acute non-recurrent maxillary sinusitis (Primary Dx); Acute right otitis media Start: 04-19-2025 End: 04-19-2025 ambulatory ELICIA Singleton RAMY Not Available Start: 04-17-2025 End: 04-22-2025 Refill Shobha Chou CONTRACT RECRUITER Work Phone: [facility] Comment on above: Shift work sleep dis order; Neurogenic pain; Mood disorder, drug-induced (HCC); Cervical paraspinal muscle spasm; MS (multiple sclerosis) (HCC) Start: 12-01-2024 End: 12-02-2024 Refill Radha Mayfield MD Work Phone: [facility] 111 Comment on above: MS (multiple scleros is) (CMS/HCC); Cervical paraspinal muscle spasm; Mood disorder, drug-induced (CMS/HCC); Migraine without aura and without status migrainosus, not intractable (CMS/HCC); Neurogenic pain; Shift work sleep disorder Start: 11-18-2024 End: 11-18-2024 Bamboo flowsheet Ambrose Altamirano CONTRACT RECRUITER Work Phone: [facility] Start: 11-18-2024 End: 11-18-2024 Bamboo flowsheet Ambrose Altamirano CONTRACT RECRUITER Work Phone: [facility] Start: 11-18-2024 End: 11-18-2024 Office outpatient visit 25 minutes Ambrose Altamirano CONTRACT RECRUITER Work Phone: [facility] Comment on above: Otitis of right ear (Primary Dx); Nausea Start: 11-18-2024 End: 11-18-2024 ambulatory AMBROSE ALTAMIRANO Not Available Start: 10-20-2024 End: 10-20-2024 Office outpatient visit 15 minutes Radha Mayfield MD Work Phone: [facility] Comment on above: Migraine without aur a, intractable, with status migrainosus (CMS/HCC) (Primary Dx); CAN (obstructive sleep apnea); MS (multiple sclerosis) (CMS/HCC); Neurogenic pain; Cervical paraspinal muscle spasm; Shift work sleep disorder Start: 10-20-2024 End: 10-20-2024 ambulatory RADHA MAYFIELD Not Available Start: 10-20-2024 End: 10-20-2024 Bamboo flowsheet Radha Mayfield MD Work Phone: [facility] Start: 10-20-2024 End: 10-20-2024 Bamboo flowsheet Radha Mayfield MD Work Phone: [facility] Start: 07-30-2024 End: 07-30-2024 Bamboo flowsheet Patti Nicholas CONTRACT RECRUITER Work Phone: [facility] Start: 07-30-2024 End: 07-30-2024 Bamboo flowsheet Patti Nicholas CONTRACT RECRUITER Work Phone: [facility] Start: 07-30-2024 End: 07-30-2024 Office outpatient visit 25 minutes Patti Nicholas CONTRACT RECRUITER Work Phone: [facility] Comment on above: Acute bilateral otit is media (Primary Dx); Acute conjunctivitis of left eye, unspecified acute conjunctivitis type; COVID-19; Shortness of breath; Acute cough; Wheezing Start: 07-30-2024 End: 07-30-2024 ambulatory PATTI NICHOLAS Not Available Start: 07-26-2024 End: 07-26-2024 ambulatory [facility] Work Phone: Start: 07-26-2024 End: 07-26-2024 Patient encounter procedure [facility] Work Phone: Start: 04-17-2024 End: 04-17-2024 ambulatory RADHA MAYFIELD [facility] Start: 01-23-2024 ambulatory Rosi Segundo MA [facility] Start: 01-23-2024 Patient encounter procedure Rosi Segundo MA [facility] Comment on above: [facility] ( [facility] Referral/Mammogram) Start: 03-22-2022 End: 03-23-2022 ambulatory RADHA MAYFIELD Facility:[facility] Start: 01-12-2022 End: 01-13-[address] DOCTOR AMADOR Facility:[facility] Start: 01-06-2022 End: 01-06-[address] VIKKI TORIBIO Facility:[facility] Start: 12-30-2021 End: 12-30-[address] RADHA HALL Facility:[facility] Start: 10-02-2021 End: 10-03-[address] SKYLER FIGUEREDO Facility:[facility] Start: 09-22-2021 End: 09-23-[address] VIKKI TORIBIO Facility:[facility] Start: 09-06-2021 Office outpatient vi sit 15 minutes Jade Allen [facility] Start: 07-08-2021 End: 07-09-2021 ambulatory MARY QUINTANA Facility:[facility] Procedures Date Procedure Procedure Detail Performing Clinician Start: 08-11-2024 Laboratory test resu lt abnormal Abnormal laboratory test Radha Mayfield MD Work Phone: Start: 07-26-2024 COVID Antigen (POC) Start: 12-24-2016 Colonoscopy Patti Nicholas NP Work Phone: Plan of Treatment Date Care Activity Detail Author Start: 12-24-2026 Screening for malign ant neoplasm of colon [facility] Start: 10-19-2025 End: 10-19-2025 Patient encounter procedure [facility] Start: 07-12-2025 Influenza vaccination [facility] Start: 04-20-2025 End: 04-20-2025 Patient encounter procedure [facility] Comment on above: Arrived Start: 04-19-2025 End: 04-19-2025 Patient encounter procedure 04/19/2025 1:30 PM EDT Office Visit [facility] [address] [place] [address] Elicia Mccann PA [address] [place] [address] Arrived [facility] Comment on above: Arrived Start: 11-18-2024 End: 11-18-2024 Patient encounter procedure 11/18/2024 8:30 AM EST Office Visit [facility] [address] [place] [address] Ambrose Altamirano CONTRACT RECRUITER [address] [place] [address] Arrived [facility] Comment on above: Arrived Start: 10-20-2024 End: 10-20-2024 Patient encounter procedure [facility] Comment on above: Arrived Start: 07-30-2024 End: 07-30-2024 Patient encounter procedure 07/30/2024 2:00 PM EDT Office Visit [facility] [address] [place] [address] Patti Nicholas, CONTRACT RECRUITER [address] [place] [address] Arrived [facility] Comment on above: Arrived Start: 07-12-2024 Influenza vaccination Influenza Vacc ine (#1) [facility] Start: 11-11-2023 Depression Assessment Depression Ass essment [facility] Start: 07-12-2023 Covid-19 Vaccine ( season) Covid-19 Vaccine ( season) [facility] Start: 07-12-2023 Influenza vaccination Influenza Vacc ine (#1) [facility] Start: 2018 Shingrix Vaccine (1 of 2) Shingrix V accine (1 of 2) [facility] Start: 2013 Diabetes Screening Diabetes Screenin g [facility] Start: 2013 Lipid panel Lipid Screening [facility] Start: 2013 Screening for malign ant neoplasm of colon [facility] Start: 2008 Screening for malign ant neoplasm of breast Mammogram Screening [facility] Start: 1998 Screening for malign ant neoplasm of cervix [facility] Start: 1989 Screening for malign ant neoplasm of cervix [facility] Start: 1987 Hepatitis B Vaccine (1 of 3 - 19+ 3-dose series) Hepatitis B Vaccine (1 of 3 - 19+ 3-dose series) [facility] Start: 1987 Urine microalbumin profile DTaP,Tdap,Td Vaccine (1 - Tdap) [facility] Start: 1986 Hepatitis C screening Hepatitis C Sc kathy [facility] Start: 1986 HIV screening HIV Screening [facility] Start: 1968 Screening for malign ant neoplasm of colon [facility] Immunizations Immunization Date Immunization Notes Care Provider Fa jomar 01-03-2009 tetanus toxoid, redu nico diphtheria toxoid, and acellular pertussis vaccine, adsorbed Patti Nicholas NP Work Phone: [facility] Payers Date Payer Category Payer Medicaid [employer] [id number] 2022-Present [phone] [address] [place] [address] Medicaid [id number] 2022 Private Health Insurance [facility] [id number] 2022 Unknown [employer] [id number] 2022-Present [phone] [address] [address] [place] [address] [id number] 2022 Unknown [id number] 1968 Unknown [id number] 2.16.840.1.325270.3.579 .2.593 1968 Unknown [id number] 2.16.840.1.666553.3.579 .2.593 1968 Unknown [id number] 2.16.840.1.108297.3.579 .2.593 1968 Unknown [id number] 2.16.840.1.363452.3.579 .2.593 1968 Unknown [id number] 2.16.840.1.226779.3.579 .2.593 1968 Unknown [id number] 2.16.840.1.483021.3.579 .2.593 1968 Unknown [id number] 2.16.840.1.609746.3.579 .2.593 1968 Unknown [id number] 2.16.840.1.536488.3.579 .2.1286 1968 Unknown [id number] 2.16.840.1.433249.3.579 .2.1259 1968 Unknown [id number] 2.16.840.1.841427.3.579 .2.1259 1968 Unknown [id number] 2.16.840.1.019631.3.579 .2.1259 1968 Unknown [id number] 2.16.840.1.160481.3.579 .2.1259 1968 Unknown [id number] 2.16.840.1.996048.3.579 .2.1259 1968 Unknown [id number] 2.16.840.1.362257.3.579 .2.1259 1959 Unknown [id number] 1959 Unknown [id number] Department [facility] ( and others) [facility] Net [employer]-Sta [id number] Self-pay Self Pay [id number] Unknown Jeni BC/BS [id number] Social History Date Type Detail Facility Unknown if ever smoked [employer] Other Start: 07-29-2024 End: 04-19-2025 Sex Assigned At [facility] Start: 07-26-2024 End: 07-30-2024 Tobacco smoking status NHIS Never smoked tobacco [facility] Start: 09-15-2008 Alcohol intake Current non-drinker of alcohol (finding) [facility] Start: 1970 Sex Assigned At Not on file [facility] Start: 1970 Sex Assigned At Female [facility] Start: 07-30-2024 Tobacco use and exposure Smokeless tobacco non-user [facility] Start: 07-29-2024 End: 04-19-2025 History of Social function [facility] How often do you nee d to have someone help you when you read instructions, pamphlets, or other written material from your doctor or pharmacy [SILS] Never [facility] Do you belong to any clubs or organizations such as faith groups, unions, fraternal or athletic groups, or school groups? Yes [facility] Are you now , , , , never or living with a partner? [facility] How often to you hav e a drink containing alcohol? Never [facility] How hard is it for y ou to pay for the very basics like food, housing, medical care, and heating Somewhat hard [facility] Do you feel stress - tense, restless, nervous, or anxious, or unable to sleep at night because your mind is troubled all the time - these days [OSQ] Only a little [facility] (I/We) worried wheth er (my/our) food would run out before (I/we) got money to buy more. Sometimes true [facility] The food that (I/we) bought just didn't last, and (I/we) didn't have money to get more. Never true [facility] In the past 12 month s, was there a time when you were not able to pay the mortgage or rent on time? No [facility] Tobacco smoking stat us OHIS Tobacco smoking consumption unknown [facility] Start: 11-18-2024 End: 04-19-2025 Alcoholic beverage intake Defer [facility] Functional Status Date Assessment Result Facility 04-19-2025 Patient [facility] ionnaire 2 item (PHQ-2) [Reported] [facility] Clinical Notes 09-06-2021 to 06-01-2025 Radha Mayfield MD - 06/01/2025 2:45 PM Rudy Mayfield MD - 06/01/2025 2:45 PM Rudy Mayfield MD - 06/01/2025 2:45 PM Rudy Mayfield MD - 06/01/2025 2:45 PM Rudy Mayfield MD - 06/01/2025 2:45 PM EDT Note Date & Type Note Facility 06-01-2025 History of Present illness Narrative Associated Problem(s): Migraine without aura, intractable, with status migrainosus Incr TPM to 50 bid (Rx written). Pt may take only 1 pill for 3 w, then bid in week 4 of galca. FMLA ppw. Orders: topiramate (Topamax) 50 MG tablet; Take 50 mg by mouth in the morning and 50 mg before bedtime. Associated Problem(s): Cervical paraspinal muscle spasm Incr rotation home PT as again demonstrated to pt. Associated Problem(s): MS (multiple sclerosis) (HCC) (Continue current regimen.) Labs - CBC, LFTs q March, Sep. - incl now, none in 1 y Cancel 02/2025 MR. Plan redo MR brain spring, WITH comparison. FMLA ppw. Associated Problem(s): Neurogenic pain (Continue current regimen.) Associated Problem(s): Shift work sleep disorder (Continue current regimen.) Associated Problem(s): CAN (obstructive sleep apnea) Plan redo PSG 2026. (Continue sleep positioning tx.) Images from the original note were not included. Outpatient Progress Note Patient: Zach Adamson Dept: Neurology : 1970 Appt Date: 06/01/2025 Prev Appt: 04/20/2025 Chief Complaint Patient presents with Migraine Appointment Note -- FU PPW to be filled out Assessment and Plan - Assessment & Plan Migraine without aura, intractable, with status migrainosus Incr TPM to 50 bid (Rx written). Pt may take only 1 pill for 3 w, then bid in week 4 of galca. FMLA ppw. Orders: topiramate (Topamax) 50 MG tablet; Take 50 mg by mouth in the morning and 50 mg before bedtime. Cervical paraspinal muscle spasm Incr rotation home PT as again demonstrated to pt. MS (multiple sclerosis) ([facility]) (Continue current regimen.) Labs - CBC, LFTs q March, Sep. - incl now, none in 1 y Cancel 02/2025 MR. Plan redo MR brain spring, WITH comparison. FMLA ppw. Neurogenic pain (Continue current regimen.) Shift work sleep disorder (Continue current regimen.) CAN (obstructive sleep apnea) Plan redo PSG 2026. (Continue sleep positioning tx.) No orders of the defined types were placed in this encounter. Follow-Up - Follow up Oct. History of Present Illness, Associated Treatments and Results - Dx ~CAN . SWSS . (CLAUSTROPHOBIA) Tx modafinil 50 occ bid AEs nasal congestion Hx SWSS - modafinil quite effective. However, potentiating citalopram via 2C19, causing somnolence. ~CAN - planning redo PSG 2026. Failed Semeiol Snores. Apnoeas noted. Awakens 1-2x during sleep. Mouth dry AM. Often unrested, would be able to fall asleep. Overweight, very difficult to lose weight. [employer] 0795-1994, sleeps 7330-0758 (6.5-7 h). Noct oxim (09/2020) - JULIAN=35 PSG ([place]) - AHI=3, REM=6 vs 3, no supine sleep; LMI=7.1, LMAI=4.8 PAPT MSLT MWT Imaging Testing Surgery Dx MIGRAINES Tx galca 120 + TPM 75 + MgGlyc 250 hs AEs Hx Freq (> 4 h) - 3-4 d/mo, 3-02/18, generally end of dose. ... 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 Orig freq - near-daily before hysterectomy; also endometriosis. Imaging Testing Surgery Failed TPM 100 (somn), citalopram 20 (ineff) ... espinoza (halluc) Onset teens Aura Visual aura, [place] around central vision Sx pressure pulsating Loc occipital -> frontal Assoc nausea vomiting photophobia phonophobia phosphenes Trigger flashing lights menses Compl dysphasia Clust none FHx sister, ?mother, daughter Dx MS . SPASM . MOOD Tx IFN-1a (Rebif) (premed APAP) ... baclofen 10 qd + Mg ?dose + Ca ... GBP 400 bid + citalopram 20 AEs Hx MS - No clear attacks. Continues to have flu-like sx with dosing. Spasm - med effective. Mood (due to IFN) - well controlled. Onset ~2006; dx ~2009. Semeiology Fatigue, hand tremor B, internal tremors . Cramps - abdomen, legs. Imaging MR brain (04/2024, [place], c/s Gd) - ~ 14 WM lesions, no +Gd . . . . (09/2021, [place]) c/s Gd - several small ^T2, some with +DWI . . . . (02/2010, [place]) - small ~6 small ^T2 MR T-spine (01/2022, [place]) - wedging T6, T7; HNPs T7-8-9 10-11-12 tiny to small; cord neg Testing VEP (11/2020, [facility]) - [id number] 118L . . . . (_, [place]) - _ LP - (_, [place]) - _ Surgery Failed PREV - b-IFN 1a (Rebif) ?dose (flu-like sx) ... COST - DMF Dx MYOFASCIITIS . HNP . COMPR FX Tx cyclobenz 20 hs (+ baclofen 10 prn at work, less soporific) AEs Hx No complaints, but see exam. Onset Semeiology Imaging MR T-s (q.v.) Testing Surgery Failed Physical Exam - General appearance, mentation, extraocular movements, facial strength and movement, hearing, upper and lower extremity strength and tone, sensation to gross testing, coordination, and gait are normal or at baseline unless noted below. HEENT - ___, unchanged: Tongue wide, ridged ... Mallampati III, orig: ___ MS - ___, unchanged: OD optic nerve mildly oedematous, orig: ___ CNN - ___, unchanged: ___, orig: ___ Motor - ___, unchanged: ___, orig: ___ Sens - ___, unchanged: ___, orig: ___ Reflex - ___, unchanged: ___, orig: ___ Coord - ___, unchanged: ___, orig: ___ Gait - ___, unchanged: Atactic, wide, orig: ___ Vestib - ___, unchanged: ___, orig: ___ MSK - Spasm - SCMs Tr C mod, unchanged: ___, orig: ___ Other - ___, unchanged: Overweight, orig: ___ Vital Signs - Visit Vitals Ht 5' 4 Wt 200 lb BMI 34.33 kg/m Smoking Status Never BSA 2.02 m Review of Systems - . Const: Denies appetite change, fever, chills. Allergy: Denies medication reaction. Ocular: Denies visual acuity change. ENT: Denies hearing change. Endoc: Denies weight loss. Resp: Denies dyspnoea, wheezing. Cardiac: Denies angina, palpitations. GI: Denies nausea, vomiting. Haem: Denies bleeding. : Denies incontinence. MSK: Denies arthralgias, joint oedema. Derm: Denies rash, hair loss. Neuro: Denies ataxia, tremor. Also see HPI for elements of ROS documented therein and for details of positive findings, which shall supersede the foregoing. PMH, PSH, Allergies, FH, SH - No past medical history on file. No past surgical history on file. Allergies Allergen Reactions Morphine Shortness of breath Other Reaction(s): shortness of breath/ hives Acetaminophen Hallucinations Oxycodone Hallucinations Oxycodone-Acetaminophen Unknown No family history on file. Outpatient Encounter Medications as of 06/01/2025 Medication Sig Dispense Refill albuterol HFA 90 mcg/act inhaler Inhale 2 puffs every 4 (four) hours if needed for wheezing or shortness of breath 18 g 0 baclofen (Lioresal) 10 MG tablet Take 1 tablet (10 mg) by mouth in the morning and 1 tablet (10 mg) before bedtime. 60 tablet 3 citalopram (CeleXA) 20 MG tablet Take 1 tablet (20 mg) by mouth Daily 90 tablet 1 cyclobenzaprine (Flexeril) 10 MG tablet 2 tabs QHS 60 tablet 1 gabapentin (Neurontin) 400 MG capsule Take 1 capsule (400 mg) by mouth in the morning and 1 capsule (400 mg) before bedtime. 180 capsule 1 galcanezumab (Emgality) 120 MG/ML auto-injector ADMINISTER 1 ML UNDER THE SKIN MONTHLY 1 mL 3 Interferon Beta-1a (Rebif Rebidose) 44 MCG/0.5ML solution auto-injector Inject 44 mcg under the skin 3 (three) times a week 12 mL 5 [] meclizine (Antivert) 25 MG tablet Take 1 tablet (25 mg) by mouth 3 (three) times a day as needed for dizziness 30 tablet 2 modafinil (Provigil) 200 MG tablet TAKE A HALF TABLET BY MOUTH EVERY MORNING, MAY INCREASE TO A HALF TABLET BY MOUTH TWICE A DAY NEEDED 30 tablet 5 ondansetron ODT (Zofran-ODT) 4 MG disintegrating tablet Take 4 mg by mouth Every 4 - 6 hours as needed for nausea (Patient not taking: Reported on 06/01/2025) topiramate (Topamax) 50 MG tablet Take 50 mg by mouth in the morning and 50 mg before bedtime. 60 tablet 5 [DISCONTINUED] Topamax 50 MG tablet 1 (one) time each day at the same time. (Patient not taking: Reported on 06/01/2025) No facility-administered encounter medications on file as of 06/01/2025. Radha Mayfield M.D. [facility] Neurology ? [address] ? [place] [address] ? ? fax Neurology ? Clinical Neurophysiology ? Epilepsy ? Sleep Disorders ? Clinical Informatics documented in this encounter [facility] 04-20-2025 History of Present illness Narrative Associated Problem(s): Migraine without aura, intractable, with status migrainosus (Continue current regimen.) Associated Problem(s): Cervical paraspinal muscle spasm Incr rotation home PT as again demonstrated to pt. Associated Problem(s): MS (multiple sclerosis) (HCC) See last note. Check if addendum to 04/2024 MR report ([place], comparing against 09/2021 & 02/2010 MR studies) has been done & get report. (Continue current regimen.) Labs - CBC, LFTs q March, Sep. Associated Problem(s): Neurogenic pain (Continue current regimen.) Associated Problem(s): CAN (obstructive sleep apnea) Plan redo PSG 2026. (Continue sleep positioning tx.) Associated Problem(s): Shift work sleep disorder (Continue current regimen.) Images from the original note were not included. Outpatient Progress Note Patient: Zach Adamson Dept: Neurology : 1970 Appt Date: 04/20/2025 Prev Appt: Visit date not found Chief Complaint Patient presents with Multiple Sclerosis Appointment Note -- 6 mo Assessment and Plan - Assessment & Plan Migraine without aura, intractable, with status migrainosus (CMS/HCC) (Continue current regimen.) Cervical paraspinal muscle spasm Incr rotation home PT as again demonstrated to pt. MS (multiple sclerosis) (CMS/HCC) See last note. Check if addendum to 04/2024 MR report ([place], comparing against 09/2021 & 02/2010 MR studies) has been done & get report. (Continue current regimen.) Labs - CBC, LFTs q March, Sep. Neurogenic pain (Continue current regimen.) CAN (obstructive sleep apnea) Plan redo PSG 2026. (Continue sleep positioning tx.) Shift work sleep disorder (Continue current regimen.) No orders of the defined types were placed in this encounter. Follow-Up - Follow up in about 6 months (around 10/20/2025), or CONTRACT RECRUITER. History of Present Illness, Associated Treatments and Results - Dx ~CAN . SWSS . (CLAUSTROPHOBIA) Tx modafinil 50 occ bid AEs Hx SWSS - modafinil quite effective. However, potentiating citalopram via 2C19, causing somnolence. ~CAN - planning redo PSG 2026. Failed Semeiol Snores. Apnoeas noted. Awakens 1-2x during sleep. Mouth dry AM. Often unrested, would be able to fall asleep. Overweight, very difficult to lose weight. [employer] 6158-3707, sleeps 5094-6992 (6.5-7 h). Noct oxim (09/2020) - JULIAN=35 PSG ([place]) - AHI=3, REM=6 vs 3, no supine sleep; LMI=7.1, LMAI=4.8 PAPT MSLT MWT Imaging Testing Surgery Dx MIGRAINES Tx galca 120 + TPM 75 + MgGlyc 250 hs AEs Hx Freq (> 4 h) - 1-2 d/mo, -02/18, generally end of dose. ... 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 Orig freq - near-daily before hysterectomy; also endometriosis. Imaging Testing Surgery Failed TPM 100 (somn), citalopram 20 (ineff) ... espinoza (halluc) Onset teens Aura Visual aura, [place] around central vision Sx pressure pulsating Loc occipital -> frontal Assoc nausea vomiting photophobia phonophobia phosphenes Trigger flashing lights menses Compl dysphasia Clust none FHx sister, ?mother, daughter Dx MS . SPASM . MOOD Tx IFN 1a (Rebif) (premed APAP) ... baclofen 10 qd + Mg ?dose + Ca ... GBP 400 bid + citalopram 20 AEs Hx MS - No clear attacks. Continues to have flu-like sx with dosing. Spasm - med effective. Mood (due to IFN) - well controlled. Onset ~2006; dx ~2009. Semeiology Fatigue, hand tremor B, internal tremors . Cramps - abdomen, legs. Imaging MR brain (04/2024, [place], c/s Gd) - ~ 14 WM lesions, no +Gd . . . . (09/2021, [place]) c/s Gd - several small ^T2, some with +DWI . . . . (02/2010, [place]) - small ~6 small ^T2 MR T-spine (01/2022, [place]) - wedging T6, T7; HNPs T7-8-9 --12 tiny to small; cord neg Testing VEP (11/2020, [facility]) - [id number] 118L . . . . (_, [place]STI) - _ LP - (_, [place]) - _ Surgery Failed PREV - b-IFN 1a (Rebif) ?dose (flu-like sx) ... COST - DMF Dx MYOFASCIITIS . HNP . COMPR FX Tx cyclobenz 20 hs (+ baclofen 10 prn at work, less soporific) AEs Hx No complaints, but see exam. Onset Semeiology Imaging MR Kumar (q.v.) Testing Surgery Failed Physical Exam - General appearance, mentation, extraocular movements, facial strength and movement, hearing, upper and lower extremity strength and tone, sensation to gross testing, coordination, and gait are normal or at baseline unless noted below. HEENT - ___, unchanged: Tongue wide, ridged ... Mallampati III, orig: ___ MS - ___, unchanged: OD optic nerve mildly oedematous, orig: ___ CNN - ___, unchanged: ___, orig: ___ Motor - ___, unchanged: ___, orig: ___ Sens - ___, unchanged: ___, orig: ___ Reflex - ___, unchanged: ___, orig: ___ Coord - ___, unchanged: ___, orig: ___ Gait - ___, unchanged: Atactic, wide, orig: ___ Vestib - ___, unchanged: ___, orig: ___ MSK - Spasm - SCMs sev Tr C mild ... ROM rot 70B, unchanged: ___, orig: ___ Other - ___, unchanged: Overweight, orig: ___ Vital Signs - Visit Vitals Ht 5' 3 Wt 203 lb BMI 35.96 kg/m Smoking Status Never BSA 2.02 m Review of Systems - . Const: Denies appetite change, fever, chills. Allergy: Denies medication reaction. Ocular: Denies visual acuity change. ENT: Denies hearing change. Endoc: Denies weight loss. Resp: Denies dyspnoea, wheezing. Cardiac: Denies angina, palpitations. GI: Denies nausea, vomiting. Haem: Denies bleeding. : Denies incontinence. MSK: Denies arthralgias, joint oedema. Derm: Denies rash, hair loss. Neuro: Denies ataxia, tremor. Also see HPI for elements of ROS documented therein and for details of positive findings, which shall supersede the foregoing. PMH, PSH, Allergies, FH, SH - No past medical history on file. No past surgical history on file. Allergies Allergen Reactions Morphine Shortness of breath Other Reaction(s): shortness of breath/ hives Acetaminophen Hallucinations Oxycodone Hallucinations Oxycodone-Acetaminophen Unknown No family history on file. Outpatient Encounter Medications as of 04/20/2025 Medication Sig Dispense Refill albuterol HFA 90 mcg/act inhaler Inhale 2 puffs every 4 (four) hours if needed for wheezing or shortness of breath 18 g 0 baclofen (Lioresal) 10 MG tablet Take 1 tablet (10 mg) by mouth in the morning and 1 tablet (10 mg) before bedtime. 60 tablet 3 citalopram (CeleXA) 20 MG tablet Take 1 tablet (20 mg) by mouth Daily 90 tablet 1 cyclobenzaprine (Flexeril) 10 MG tablet 2 tabs QHS 60 tablet 1 gabapentin (Neurontin) 400 MG capsule Take 1 capsule (400 mg) by mouth in the morning and 1 capsule (400 mg) before bedtime. 180 capsule 1 galcanezumab (Emgality) 120 MG/ML auto-injector ADMINISTER 1 ML UNDER THE SKIN MONTHLY 1 mL 3 Interferon Beta-1a (Rebif Rebidose) 44 MCG/0.5ML solution auto-injector Inject 44 mcg under the skin 3 (three) times a week 12 mL 5 meclizine (Antivert) 25 MG tablet Take 1 tablet (25 mg) by mouth 3 (three) times a day as needed for dizziness 30 tablet 2 modafinil (Provigil) 200 MG tablet TAKE 1/2 TABLET BY MOUTH EVERY MORNING, MAY INCREASE TO 1/2 TABLET TWICE DAILY NEEDED 30 tablet 1 Topamax 50 MG tablet 1 (one) time each day at the same time. No facility-administered encounter medications on file as of 04/20/2025. Radha Mayfield M.D. [facility] Neurology ? [address] ? [place], [place] [address] ? ? fax Neurology ? Clinical Neurophysiology ? Epilepsy ? Sleep Disorders ? Clinical Informatics documented in this encounter [facility] 04-19-2025 History of Present illness Narrative Subjective Patient ID: Zach Adamson is a 54 y.o. female who presents for URI. Zach is present today for evaluation of URI for about a week. Admits sinus pressure, nasal congestion, bilateral ear pain but right ear is the worst, ear ringing, sore throat , bottom row of teeth hurt, fever yesterday (100.5), fatigue. She has had the ear pain since Saturday night and has just gotten worse. She has tried Mucinex and Sudafed and does not feel it helped at all. Current Outpatient Medications on File Prior to Visit Medication Sig Dispense Refill ondansetron ODT (Zofran-ODT) 4 MG disintegrating tablet Take 4 mg by mouth Every 4 - 6 hours as needed for nausea albuterol HFA 90 mcg/act inhaler Inhale 2 puffs every 4 (four) hours if needed for wheezing or shortness of breath 18 g 0 baclofen (Lioresal) 10 MG tablet Take 1 tablet (10 mg) by mouth in the morning and 1 tablet (10 mg) before bedtime. 60 tablet 3 citalopram (CeleXA) 20 MG tablet Take 1 tablet (20 mg) by mouth Daily 90 tablet 1 cyclobenzaprine (Flexeril) 10 MG tablet 2 tabs QHS 60 tablet 1 gabapentin (Neurontin) 400 MG capsule Take 1 capsule (400 mg) by mouth in the morning and 1 capsule (400 mg) before bedtime. 180 capsule 1 galcanezumab (Emgality) 120 MG/ML auto-injector ADMINISTER 1 ML UNDER THE SKIN MONTHLY 1 mL 3 Interferon Beta-1a (Rebif Rebidose) 44 MCG/0.5ML solution auto-injector Inject 44 mcg under the skin 3 (three) times a week 12 mL 5 meclizine (Antivert) 25 MG tablet Take 1 tablet (25 mg) by mouth 3 (three) times a day as needed for dizziness 30 tablet 2 modafinil (Provigil) 200 MG tablet TAKE 1/2 TABLET BY MOUTH EVERY MORNING, MAY INCREASE TO 1/2 TABLET TWICE DAILY NEEDED 30 tablet 1 Topamax 50 MG tablet 1 (one) time each day at the same time. No current facility-administered medications on file prior to visit. I have reviewed and reconciled the history and medication list with the patient today. Allergies Allergen Reactions Morphine Shortness of breath Other Reaction(s): shortness of breath/ hives Acetaminophen Hallucinations Oxycodone Hallucinations Oxycodone-Acetaminophen Unknown Social History Tobacco Use Smoking status: Never Smokeless tobacco: Never Vaping Use Vaping status: Unknown Substance Use Topics Alcohol use: Defer Drug use: Defer No family history on file. History reviewed. No pertinent past medical history. History reviewed. No pertinent surgical history. Visit Vitals BP 108/70 Pulse 90 Temp 98.5 F Resp 16 Ht 5' 3 Wt 203 lb 3.2 oz SpO2 97% BMI 36.00 kg/m Smoking Status Never BSA 2.02 m Review of Systems Constitutional: Positive for fatigue and fever. Negative for chills. HENT: Positive for congestion, ear pain, sinus pressure, sinus pain, sore throat and tinnitus. Negative for postnasal drip and rhinorrhea. Respiratory: Negative for cough, shortness of breath and wheezing. Cardiovascular: Negative for chest pain, palpitations and leg swelling. Gastrointestinal: Negative for abdominal pain, constipation, diarrhea, nausea and vomiting. Objective Physical Exam Constitutional: General: She is not in acute distress. Appearance: She is well-developed. She is obese. HENT: Head: Normocephalic and atraumatic. Right Ear: Ear canal normal. A middle ear effusion (Sharri colored) is present. Tympanic membrane is injected and retracted. Left Ear: Ear canal normal. Tympanic membrane is injected. Nose: Congestion present. Right Turbinates: Swollen. Left Turbinates: Swollen. Right Sinus: Maxillary sinus tenderness present. Left Sinus: Maxillary sinus tenderness present. Comments: Turbinates erythematous Mouth/Throat: Mouth: Mucous membranes are moist. Pharynx: Posterior oropharyngeal erythema (Mild) present. Eyes: General: No scleral icterus. Conjunctiva/sclera: Conjunctivae normal. Cardiovascular: Rate and Rhythm: Normal rate and regular rhythm. Heart sounds: Normal heart sounds. No murmur heard. Pulmonary: Effort: Pulmonary effort is normal. No respiratory distress. Breath sounds: Normal breath sounds. No wheezing, rhonchi or rales. Lymphadenopathy: Cervical: Cervical adenopathy (Bilateral submandibular) present. Skin: General: Skin is warm and dry. Neurological: General: No focal deficit present. Mental Status: She is alert and oriented to person, place, and time. Psychiatric: Mood and Affect: Mood normal. Behavior: Behavior normal. Assessment/Plan Diagnoses and all orders for this visit: Acute non-recurrent maxillary sinusitis - amoxicillin (Amoxil) 875 MG tablet; Take 1 tablet (875 mg) by mouth in the morning and 1 tablet (875 mg) before bedtime. Do all this for 10 days. Start the above as directed. Reviewed potential s/e with patient. Encouraged probiotic while on antibiotic. Increase water intake, get plenty of rest. Can take OTC allergy medication for symptomatic relief. Tylenol/Motrin prn. Follow up if no improvement in one week. Acute right otitis media - amoxicillin (Amoxil) 875 MG tablet; Take 1 tablet (875 mg) by mouth in the morning and 1 tablet (875 mg) before bedtime. Do all this for 10 days. See above. Follow up for Wellness. documented in this encounter [facility] 11-18-2024 History of Present illness Narrative Images from the original note were not included. Subjective Patient ID: Zach Adamson is a 54 y.o. female who presents for ear pain. Zach presents today for ear pain and dizziness with nausea, with a fever. This has been going on for a week. Earache There is pain in both ears. This is a new problem. The current episode started 1 to 4 weeks ago. The problem has been gradually worsening. The maximum temperature recorded prior to her arrival was 100.4 - 100.9 F. The fever has been present for 3 to 4 days. The pain is at a severity of 7/10. The pain is moderate. Associated symptoms include headaches. Associated symptoms comments: Nasal congestion with green drainage. Treatments tried: zofran, APAP. The treatment provided mild relief. Current Outpatient Medications on File Prior to Visit Medication Sig Dispense Refill albuterol HFA 90 mcg/act inhaler Inhale 2 puffs every 4 (four) hours if needed for wheezing or shortness of breath 18 g 0 baclofen (Lioresal) 10 MG tablet TAKE 1 TABLET BY MOUTH EVERY MORNING AND 1 TABLET EVERY NIGHT AT BEDTIME 180 tablet 1 citalopram (CeleXA) 20 MG tablet Take 1 tablet (20 mg) by mouth Daily 90 tablet 1 cyclobenzaprine (Flexeril) 10 MG tablet Take 1 tablet (10 mg) by mouth in the morning and 1 tablet (10 mg) in the evening and 1 tablet (10 mg) before bedtime. 90 tablet 5 gabapentin (Neurontin) 400 MG capsule Take 1 capsule (400 mg) by mouth in the morning and 1 capsule (400 mg) before bedtime. 180 capsule 1 galcanezumab (Emgality) 120 MG/ML auto-injector ADMINISTER 1 ML UNDER THE SKIN MONTHLY 1 mL 3 Interferon Beta-1a (Rebif Rebidose) 44 MCG/0.5ML solution auto-injector Inject 44 mcg under the skin 3 (three) times a week 12 mL 5 modafinil (Provigil) 200 MG tablet TAKE 1/2 TABLET BY MOUTH EVERY MORNING, MAY INCREASE TO 1/2 TABLET TWICE DAILY NEEDED 90 tablet 1 Topamax 50 MG tablet 1 (one) time each day at the same time. [DISCONTINUED] Interferon Beta-1a (Rebif Rebidose) 44 MCG/0.5ML solution auto-injector 0.5 mL Subcutaneous Three times a Week for 30 days No current facility-administered medications on file prior to visit. I have reviewed and reconciled the history and medication list with the patient today. Allergies Allergen Reactions Morphine Shortness of breath Other Reaction(s): shortness of breath/ hives Acetaminophen Hallucinations Oxycodone Hallucinations Oxycodone-Acetaminophen Unknown Social History Tobacco Use Smoking status: Never Smokeless tobacco: Never Vaping Use Vaping status: Unknown Substance Use Topics Alcohol use: Defer Drug use: Defer No family history on file. History reviewed. No pertinent past medical history. History reviewed. No pertinent surgical history. Visit Vitals Smoking Status Never Review of Systems HENT: Positive for ear pain. Neurological: Positive for headaches. Objective Physical Exam Constitutional: Appearance: Normal appearance. HENT: Head: Normocephalic. Right Ear: A middle ear effusion is present. Tympanic membrane is erythematous. Nose: Congestion present. Right Turbinates: Not swollen. Left Turbinates: Not swollen. Mouth/Throat: Mouth: Mucous membranes are moist. Pharynx: Oropharynx is clear. Cardiovascular: Rate and Rhythm: Normal rate and regular rhythm. Pulmonary: Effort: Pulmonary effort is normal. Breath sounds: Normal breath sounds. Skin: General: Skin is warm and dry. Neurological: General: No focal deficit present. Mental Status: She is alert and oriented to person, place, and time. Psychiatric: Mood and Affect: Mood normal. Behavior: Behavior normal. Thought Content: Thought content normal. Assessment/Plan Diagnoses and all orders for this visit: Otitis of right ear - amoxicillin (Amoxil) 875 MG tablet; Take 1 tablet (875 mg) by mouth in the morning and 1 tablet (875 mg) before bedtime. Do all this for 10 days. Take ATB until completed. If there is no improvement in dizziness, or nausea, come back to the office for further treatment next week. No follow-ups on file. documented in this encounter [facility] 10-20-2024 History of Present illness Narrative Associated Problem(s): Migraine without aura, intractable, with status migrainosus (CMS/HCC) (Continue current regimen.) Associated Problem(s): CAN (obstructive sleep apnea) Plan redo PSG 2026. (Continue sleep positioning tx.) Associated Problem(s): MS (multiple sclerosis) (CMS/HCC) Send msg to interpreting radiologist (2nd req) - Please compare 04/2024 MR against 09/2021 & 02/2010 MR images (both [facility]) and made addendum to report? (Continue current regimen.) Labs - CBC, LFTs q March, Sep. Associated Problem(s): Neurogenic pain (Continue current regimen.) Associated Problem(s): Cervical paraspinal muscle spasm Incr home PT stefan rotation as demonstrated to pt. Associated Problem(s): Shift work sleep disorder (Continue current regimen.) Images from the original note were not included. Outpatient Progress Note Patient: Zach Adamson Dept: Neurology : 1970 Appt Date: 10/20/2024 Prev Appt: Visit date not found Chief Complaint Patient presents with Multiple Sclerosis Assessment and Plan - Assessment & Plan Migraine without aura, intractable, with status migrainosus (CMS/HCC) (Continue current regimen.) CAN (obstructive sleep apnea) Plan redo PSG 2026. (Continue sleep positioning tx.) MS (multiple sclerosis) ([facility]) Send msg to interpreting radiologist (2nd req) - Please compare 04/2024 MR against 09/2021 & 02/2010 MR images (both [facility]) and made addendum to report? (Continue current regimen.) Labs - CBC, LFTs q March, Sep. Neurogenic pain (Continue current regimen.) Cervical paraspinal muscle spasm Incr home PT stefan rotation as demonstrated to pt. Shift work sleep disorder (Continue current regimen.) No orders of the defined types were placed in this encounter. Follow-Up - Follow up in about 6 months (around 04/20/2025), or CONTRACT RECRUITER. History of Present Illness, Associated Treatments and Results - Dx ~CAN . SWSS . (CLAUSTROPHOBIA) Tx modafinil 50 AEs Hx SWSS - modafinil effective. However, potentiating citalopram via 2C19, causing somnolence. ~CAN - planning redo PSG 2026. Failed Semeiol Snores. Apnoeas noted. Awakens 1-2x during sleep. Mouth dry AM. Often unrested, would be able to fall asleep. Overweight, very difficult to lose weight. [employer] [id number], sleeps 8107-6116 (6.5-7 h). Noct oxim (09/2020) - JULIAN=35 PSG ([place]) - AHI=3, REM=6 vs 3, no supine sleep; LMI=7.1, LMAI=4.8 PAPT MSLT MWT Imaging Testing Surgery Dx MIGRAINES Tx galca 120 + TPM 75 + Mg 250 AEs Hx Freq (> 4 h) - 1-2 d/mo, 3-02/18, generally end of dose. ... 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 Orig freq - near-daily before hysterectomy; also endometriosis. Imaging Testing Surgery Failed TPM 100 (somn), citalopram 20 (ineff) ... espinoza (halluc) Onset teens Aura Visual aura, [place] around central vision Sx pressure pulsating Loc occipital -> frontal Assoc nausea vomiting photophobia phonophobia phosphenes Trigger flashing lights menses Compl dysphasia Clust none FHx sister, ?mother, daughter Dx MS . SPASM . MOOD Tx IFN 1a (Rebif) (premed APAP) ... baclofen 10 qd + Mg ?dose + Ca ... GBP 400 bid + citalopram 20 AEs Hx MS - No clear attacks. Continues to have flu-like sx with dosing. Spasm - med effective. Mood (due to IFN) - well controlled. Onset ~2006; dx ~2009. Semeiology Fatigue, hand tremor B, internal tremors . Cramps - abdomen, legs. Imaging MR brain (04/2024, [place], c/s Gd) - ~ 14 WM lesions, no +Gd . . . . (09/2021, [place]) c/s Gd - several small ^T2, some with +DWI . . . . (02/2010, [place]) - small ~6 small ^T2 MR T-spine (01/2022, [place]) - wedging T6, T7; HNPs T7-8-9 10--12 tiny to small; cord neg Testing VEP (11/2020, [facility]) - [id number] . . . . (_, K[place]ST[place]) - _ LP - (_, [place]) - _ Surgery Failed PREV - b-IFN 1a (Rebif) ?dose (flu-like sx) ... COST - DMF Dx MYOFASCIITIS . HNP . COMPR FX Tx cyclobenz 20 hs (+ baclofen 10 prn at work, less soporific) AEs Hx New complaint. Fell on ice, onto backpack. MR Heath done. Onset Semeiology Imaging MR Heath (q.v.) Testing Surgery Failed Physical Exam - General appearance, mentation, extraocular movements, facial strength and movement, hearing, upper and lower extremity strength and tone, sensation to gross testing, coordination, and gait are normal or at baseline unless noted below. HEENT - ___, unchanged: Tongue wide, ridged ... Mallampati III, orig: ___ MS - ___, unchanged: OD optic nerve mildly oedematous, orig: ___ CNN - ___, unchanged: ___, orig: ___ Motor - ___, unchanged: ___, orig: ___ Sens - ___, unchanged: ___, orig: ___ Reflex - ___, unchanged: ___, orig: ___ Coord - ___, unchanged: ___, orig: ___ Gait - ___, unchanged: Atactic, wide, orig: ___ Vestib - ___, unchanged: ___, orig: ___ MSK - Spasm - SCMs sev Tr C mild, unchanged: ___, orig: ___ Other - ___, unchanged: Overweight, orig: ___ Vital Signs - Visit Vitals Ht 5' 3 Wt 200 lb BMI 35.43 kg/m Smoking Status Never BSA 2.01 m Review of Systems - . Const: Denies appetite change, fever, chills. Allergy: Denies medication reaction. Ocular: Denies visual acuity change. ENT: Denies hearing change. Endoc: Denies weight loss. Resp: Denies dyspnoea, wheezing. Cardiac: Denies angina, palpitations. GI: Denies nausea, vomiting. Haem: Denies bleeding. : Denies incontinence. MSK: Denies arthralgias, joint oedema. Derm: Denies rash, hair loss. Neuro: Denies ataxia, tremor. Also see HPI for elements of ROS documented therein and for details of positive findings, which shall supersede the foregoing. PMH, PSH, Allergies, FH, SH - No past medical history on file. No past surgical history on file. Allergies Allergen Reactions Morphine Shortness of breath Other Reaction(s): shortness of breath/ hives Acetaminophen Hallucinations Oxycodone Hallucinations Oxycodone-Acetaminophen Unknown No family history on file. Outpatient Encounter Medications as of 10/20/2024 Medication Sig Dispense Refill albuterol HFA 90 mcg/act inhaler Inhale 2 puffs every 4 (four) hours if needed for wheezing or shortness of breath 18 g 0 baclofen (Lioresal) 10 MG tablet TAKE 1 TABLET BY MOUTH EVERY MORNING AND 1 TABLET EVERY NIGHT AT BEDTIME 180 tablet 1 citalopram (CeleXA) 20 MG tablet Take 1 tablet (20 mg) by mouth Daily 90 tablet 1 cyclobenzaprine (Flexeril) 10 MG tablet Take 1 tablet (10 mg) by mouth in the morning and 1 tablet (10 mg) in the evening and 1 tablet (10 mg) before bedtime. 90 tablet 5 gabapentin (Neurontin) 400 MG capsule Take 1 capsule (400 mg) by mouth in the morning and 1 capsule (400 mg) before bedtime. 180 capsule 1 galcanezumab (Emgality) 120 MG/ML auto-injector ADMINISTER 1 ML UNDER THE SKIN MONTHLY 1 mL 3 Interferon Beta-1a (Rebif Rebidose) 44 MCG/0.5ML solution auto-injector 0.5 mL Subcutaneous Three times a Week for 30 days modafinil (Provigil) 200 MG tablet TAKE 1/2 TABLET BY MOUTH EVERY MORNING, MAY INCREASE TO 1/2 TABLET TWICE DAILY NEEDED 90 tablet 1 Topamax 50 MG tablet 1 (one) time each day at the same time. [DISCONTINUED] methylPREDNISolone Acetate (DEPO-Medrol) 20 MG/ML injection EVERY 4 WEEKS [DISCONTINUED] predniSONE (Deltasone) 20 MG tablet 3 tabs x 2 days, 2 tabs x 2 days, 1 1/2 x 2 days, 1 tab x 2 days, 1/2 tab x 2 days then stop 16 tablet 0 No facility-administered encounter medications on file as of 10/20/2024. Radha Mayfield M.D. [facility] ? [id number] ? [place], [place] [address] ? ? fax Neurology ? Clinical Neurophysiology ? Epilepsy ? Sleep Disorders ? Clinical Informatics documented in this encounter [facility] 07-30-2024 History of Present illness Narrative Images from the original note were not included. HPI Follow-up Additional comments: Pt went to 07/27/24 dx covid rx for prednisone taper given pt was given off work until today--07/30/24 Last edited by Carina No LPN on 07/30/2024 2:01 PM. Subjective Patient ID: Zach Adamson is a 53 y.o. female who presents for Follow-up (Pt went to 07/27/24 dx covid rx for prednisone taper given pt was given off work until today--07/30/24) and Covid-19 Home Monitoring Visit. Pt is still on prednisone taper, she is supposed to return to work tonight but does not feel she can return She has dyspnea with exertion, fatigue,cough She developed conjunctivitis for 2 days in left eye- matting,erthema Pt has MS and states covid has really been causing flare in symptoms Current Outpatient Medications on File Prior to Visit Medication Sig Dispense Refill citalopram (CeleXA) 20 MG tablet TAKE 1 TABLET BY MOUTH EVERY DAY 90 tablet 2 gabapentin (Neurontin) 400 MG capsule TAKE 1 CAPSULE BY MOUTH TWICE DAILY 180 capsule 1 galcanezumab (Emgality) 120 MG/ML auto-injector ADMINISTER 1 ML UNDER THE SKIN MONTHLY 1 mL 3 Interferon Beta-1a (Rebif Rebidose) 44 MCG/0.5ML solution auto-injector 0.5 mL Subcutaneous Three times a Week for 30 days methylPREDNISolone Acetate (DEPO-Medrol) 20 MG/ML injection EVERY 4 WEEKS modafinil (Provigil) 200 MG tablet TAKE 1/2 TABLET BY MOUTH EVERY MORNING, MAY INCREASE TO 1/2 TABLET TWICE DAILY NEEDED 90 tablet 1 Topamax 50 MG tablet 1 (one) time each day at the same time. baclofen (Lioresal) 10 MG tablet Take 1 tablet (10 mg) by mouth in the morning and 1 tablet (10 mg) before bedtime. 60 tablet 5 cyclobenzaprine (Flexeril) 10 MG tablet Take 1 tablet (10 mg) by mouth in the morning and 1 tablet (10 mg) in the evening and 1 tablet (10 mg) before bedtime. 90 tablet 5 [DISCONTINUED] galcanezumab (Emgality) 120 MG/ML auto-injector ADMINISTER 1 ML UNDER THE SKIN MONTHLY 1 each 5 No current facility-administered medications on file prior to visit. I have reviewed and reconciled the history and medication list with the patient today. Allergies Allergen Reactions Oxycodone-Acetaminophen Unknown Social History Tobacco Use Smoking status: Never Smokeless tobacco: Never No family history on file. History reviewed. No pertinent past medical history. History reviewed. No pertinent surgical history. Visit Vitals Ht 5' 3 BMI 35.43 kg/m Smoking Status Never BSA 2.01 m Review of Systems Constitutional: Positive for chills, fatigue and fever. HENT: Positive for congestion, ear pain, postnasal drip, rhinorrhea, sinus pressure, sinus pain and sneezing. Eyes: Positive for redness. Respiratory: Positive for cough and wheezing. Cardiovascular: Negative. Gastrointestinal: Negative. Genitourinary: Negative. Skin: Negative. Neurological: Negative. Psychiatric/Behavioral: Negative. Hematological: Negative. Endocrine: Negative. Allergic/Immunologic: Negative. Objective Physical Exam Vitals reviewed. Constitutional: Appearance: She is ill-appearing. HENT: Head: Normocephalic and atraumatic. Right Ear: External ear normal. Left Ear: External ear normal. Ears: Comments: Mild redness at the bilateral ear canals, bilateral TM's with redness, bulging Mouth/Throat: Mouth: Mucous membranes are moist. Pharynx: Oropharyngeal exudate and posterior oropharyngeal erythema present. Eyes: General: Left eye: Discharge present. Extraocular Movements: Extraocular movements intact. Pupils: Pupils are equal, round, and reactive to light. Cardiovascular: Rate and Rhythm: Normal rate and regular rhythm. Pulses: Normal pulses. Heart sounds: Normal heart sounds. Pulmonary: Breath sounds: Wheezing present. Abdominal: General: Abdomen is flat. Bowel sounds are normal. Palpations: Abdomen is soft. Musculoskeletal: General: Normal range of motion. Cervical back: Normal range of motion and neck supple. Skin: General: Skin is warm and dry. Neurological: Mental Status: She is alert and oriented to person, place, and time. Psychiatric: Mood and Affect: Mood normal. Behavior: Behavior normal. Thought Content: Thought content normal. Judgment: Judgment normal. Assessment/Plan 1. Acute bilateral otitis media Discussed diagnosis, use of cefdinir and its most common side effects. Advised to continue to increase fluids, take the capmist as prescribed today, rest and follow up as needed for continued or worsening symptoms. - cefdinir (Omnicef) 300 MG capsule; Take 1 capsule (300 mg) by mouth in the morning and 1 capsule (300 mg) before bedtime. Do all this for 10 days. Dispense: 20 capsule; Refill: 0 2. Acute conjunctivitis of left eye, unspecified acute conjunctivitis type Discussed diagnosis, use of tobradex and its most common side effects. Advised to use as ordered, discussed appropriate hand washing, follow up as needed for continued or worsening symptoms. - tobramycin-dexAMETHasone (TobraDex) ophthalmic suspension; Administer 1 drop into the left eye every 4 (four) hours while awake for 3 days Dispense: 2.5 mL; Refill: 0 3. COVID-19 The pt tested positive for covid on 07/27/24 and has continued to worsen with worsening symptoms. Discussed covid related precautions with the pt today. 4. Shortness of breath Extended prednisone taper for 10 more days at this time. Discussed use of albuterol prn for sob or wheezing. - predniSONE (Deltasone) 20 MG tablet; 3 tabs x 2 days, 2 tabs x 2 days, 1 1/2 x 2 days, 1 tab x 2 days, 1/2 tab x 2 days then stop Dispense: 5 tablet; Refill: 0 - albuterol HFA 90 mcg/act inhaler; Inhale 2 puffs every 4 (four) hours if needed for wheezing or shortness of breath Dispense: 18 g; Refill: 0 5. Acute cough Discussed use of capmist dm and its most common side effects. - [id number]-IQ-[id number] 60-15-400 MG tablet; Take 1 tablet by mouth in the morning and 1 tablet at noon and 1 tablet in the evening and 1 tablet before bedtime. Do all this for 10 days. Dispense: 40 tablet; Refill: 0 6. Wheezing - predniSONE (Deltasone) 20 MG tablet; 3 tabs x 2 days, 2 tabs x 2 days, 1 1/2 x 2 days, 1 tab x 2 days, 1/2 tab x 2 days then stop Dispense: 5 tablet; Refill: 0 - albuterol HFA 90 mcg/act inhaler; Inhale 2 puffs every 4 (four) hours if needed for wheezing or shortness of breath Dispense: 18 g; Refill: 0 No follow-ups on file. documented in this encounter [facility] 07-30-2024 Instructions Patti Nicholas NP - 07/30/2024 2:00 PM EDT Prednisone taper extended today. Cefdinir is added x 10 days Tobradex is added x 3 days Capmist DM is added x 10 days Albuterol inh added prn for SOB/Wheezing documented in this encounter [facility] 02-04-2024 Note HNO ID: [id number] Author: ROSI SEGUNDO MA Service: ? Author Type: Driller'S Offsider Type: Progress Notes Filed: 02/04/2024 13:44 Note Text: [facility] OUTREACH Provider Action/FYI Mammogram clinic at [facility] has been canceled. Will reach out to the patient once rescheduled. Rsoi Segundo MA [facility] 02-04-2024 History of Present illness Narrative [facility] OUTREACH Provider Action/FYI Mammogram clinic at [facility] has been canceled. Will reach out to the patient once rescheduled. Rosi Segundo MA [facility] OUTREACH Provider Action/FYI Mammogram referral received. Attempted to make contact with the patient for scheduling, no answer. LVM asking for a return call. I will follow up. Rosi Segundo MA documented in this encounter [facility] 01-23-2024 Note HNO ID: [id number] Author: ROSI SEGUNDO MA Service: ? Author Type: Driller'S Offsider Type: Progress Notes Filed: 02/04/2024 13:44 Note Text: [facility] Provider Action/FYI Mammogram referral received. Attempted to make contact with the patient for scheduling, no answer. LVM asking for a return call. I will follow up. Rosi Segundo MA [facility] 01-23-2024 Note Patient Outreach (KITTY LEONG) ZACH ADAMSON ([id number]) 1970 F Date Time Provider Department 01/23/24 ROSI SEGUNDO During your visit today, we recorded the following information about you: Rosi Segundo MA 02/04/2024 1:44 PM Signed [facility] Provider Action/FYI Mammogram referral received. Attempted to make contact with the patient for scheduling, no answer. LVM asking for a return call. I will follow up. JAYESH Arreaga Tracie, MA 02/04/2024 1:44 PM Signed [facility] Provider Action/FYI Mammogram clinic at [facility] has been canceled. Will reach out to the patient once rescheduled. Rosi Segundo MA Allergies As of Date: 01/23/2024 Noted Allergy Reaction MORPHINE 09/15/2008 12 - Shortness of Breath Date Reviewed: 06/10/2008 Reviewed by: Lama Mani Kamara (Res) - Reviewed Reason for Visit: Community Outreach [Other] Cmt: [facility] Referral/Mammogram Prescriptions as of 02/04/2024 - gabapentin(NEURONTIN 400 MG CAP) Take one(1) tablet three times daily., total dose 500 mg po qd - gabapentin(NEURONTIN 100 MG CAP) Take one(1) tablet three times daily. - alendronate sodium(FOSAMAX 70 MG TAB) 1 tab weekly Problem List As Of Date: 01/23/2024 (None) Encounter Status:Closed by ROSI SEGUNDO on 02/04/24 [facility] 01-06-2022 Note PROCEDURE: CT CSPINE WO CON, CT TSPINE WO CON, CT LSPINE WO CON COMPARISON: Lumbar spine x-ray 12/30/2021. HISTORY: Pain TECHNIQUE: Axial, Coronal, and Sagittal CT images obtained without IV contrast. Dose reduction techniques were achieved by using automated exposure control and/or adjustment of mA and/or kV according to patient size and/or use of iterative reconstruction technique. CERVICAL FINDINGS: PARASPINAL AREA: Normal with no visible mass. DISCS: Mild to moderate disc space during C5-C6 and C6-C7 BONES: Normal alignment with no acute fracture or spondylolisthesis. Mild to moderate degenerative spondylosis most significant posterior C5-C6 and C7 OTHER: Negative. THORACIC FINDINGS: PARASPINAL AREA: Normal with no visible mass. DISCS: Normal spacing. Suspected posterior disc bulging T5-T6, T6-T7 and T7-T8 with calcification at T7-T8 BONES: Normal alignment with no spondylolisthesis. Mild anterior wedging T6 and T7, age indeterminate. Mild degenerative spondylosis most significant along the anterior margin of T7 and T8 OTHER: Negative. LUMBAR FINDINGS: PARASPINAL AREA: Normal with no visible mass. DISCS: Normal intervertebral spacing BONES: Normal alignment with no acute fracture or spondylolisthesis. Mild degenerative spondylosis most significant at L2-L3 OTHER: Negative. IMPRESSION: Mild anterior wedging of the T6 and T7 vertebral bodies, physiologic wedging versus age-indeterminate compression fractures. If an acute compression fracture is clinically suspected MRI could be performed for further evaluation Mild diffuse degenerative changes most significant C5-C6 and C6-C7 Electronically authenticated by: KEARA ADAMS Date: 2022-01-06 14:16 [facility] 01-06-2022 Note PROCEDURE: CT CSPINE WO CON, CT TSPINE WO CON, CT LSPINE WO CON COMPARISON: Lumbar spine x-ray 12/30/2021. HISTORY: Pain TECHNIQUE: Axial, Coronal, and Sagittal CT images obtained without IV contrast. Dose reduction techniques were achieved by using automated exposure control and/or adjustment of mA and/or kV according to patient size and/or use of iterative reconstruction technique. CERVICAL FINDINGS: PARASPINAL AREA: Normal with no visible mass. DISCS: Mild to moderate disc space during C5-C6 and C6-C7 BONES: Normal alignment with no acute fracture or spondylolisthesis. Mild to moderate degenerative spondylosis most significant posterior C5-C6 and C7 OTHER: Negative. THORACIC FINDINGS: PARASPINAL AREA: Normal with no visible mass. DISCS: Normal spacing. Suspected posterior disc bulging T5-T6, T6-T7 and T7-T8 with calcification at T7-T8 BONES: Normal alignment with no spondylolisthesis. Mild anterior wedging T6 and T7, age indeterminate. Mild degenerative spondylosis most significant along the anterior margin of T7 and T8 OTHER: Negative. LUMBAR FINDINGS: PARASPINAL AREA: Normal with no visible mass. DISCS: Normal intervertebral spacing BONES: Normal alignment with no acute fracture or spondylolisthesis. Mild degenerative spondylosis most significant at L2-L3 OTHER: Negative. IMPRESSION: Mild anterior wedging of the T6 and T7 vertebral bodies, physiologic wedging versus age-indeterminate compression fractures. If an acute compression fracture is clinically suspected MRI could be performed for further evaluation Mild diffuse degenerative changes most significant C5-C6 and C6-C7 Electronically authenticated by: KEARA ADAMS Date: 2022-01-06 14:16 [facility] 01-06-2022 Note PROCEDURE: CT CSPINE WO CON, CT TSPINE WO CON, CT LSPINE WO CON COMPARISON: Lumbar spine x-ray 12/30/2021. HISTORY: Pain TECHNIQUE: Axial, Coronal, and Sagittal CT images obtained without IV contrast. Dose reduction techniques were achieved by using automated exposure control and/or adjustment of mA and/or kV according to patient size and/or use of iterative reconstruction technique. CERVICAL FINDINGS: PARASPINAL AREA: Normal with no visible mass. DISCS: Mild to moderate disc space during C5-C6 and C6-C7 BONES: Normal alignment with no acute fracture or spondylolisthesis. Mild to moderate degenerative spondylosis most significant posterior C5-C6 and C7 OTHER: Negative. THORACIC FINDINGS: PARASPINAL AREA: Normal with no visible mass. DISCS: Normal spacing. Suspected posterior disc bulging T5-T6, T6-T7 and T7-T8 with calcification at T7-T8 BONES: Normal alignment with no spondylolisthesis. Mild anterior wedging T6 and T7, age indeterminate. Mild degenerative spondylosis most significant along the anterior margin of T7 and T8 OTHER: Negative. LUMBAR FINDINGS: PARASPINAL AREA: Normal with no visible mass. DISCS: Normal intervertebral spacing BONES: Normal alignment with no acute fracture or spondylolisthesis. Mild degenerative spondylosis most significant at L2-L3 OTHER: Negative. IMPRESSION: Mild anterior wedging of the T6 and T7 vertebral bodies, physiologic wedging versus age-indeterminate compression fractures. If an acute compression fracture is clinically suspected MRI could be performed for further evaluation Mild diffuse degenerative changes most significant C5-C6 and C6-C7 Electronically authenticated by: KEARA ADAMS Date: 2022-01-06 14:16 [facility] 09-06-2021 Evaluation note Encounter Date Diagnosis Assessment Notes Aug, Contact with and (suspected) exposure to other viral communicable diseases (ICD-10 - Z20.828) Aug, COVID-19 (ICD-10 - U07.1) Drink plenty fluids, get plenty of rest. Continue your home medications as prescribed. Take the Zithromax as prescribed until gone. Take the prednisone as prescribed until gone. Use the albuterol inhaler as prescribed as needed for cough or shortness of breath. Follow-up with your family physician if no improvement in 2 to 3 days. You must self isolate for 10 days after the onset of your symptoms. Aug, Fever, unspecified fever cause (ICD-10 - R50.9) Aug, Other Additional time spent conducting pre-visit phone call, screening for symptoms, instructions on social distancing, application and removal of PPE, and cleaning of examination room, equipment and supplies was preformed. Patient education given for testing methodology and results. Patient care instructions given in writting by [facility] Care At Home document. [employer] Other Chief complaint+Reason for visit Narrative* Chief Complaint Cough, congestion, p os at home covid test Reason for Visit COVID-19 [facility] Work Phone: Evaluation note* Diagnosis Onset Date Resolution Status [facility] acute [facility] Work Phone: Evaluation note* Diagnosis MS (multiple sclerosis) (CMS/HCC)- Primary Multiple sclerosis Migraine without aura and without status migrainosus, not intractable (CMS/HCC) CAN (obstructive sleep apnea) Obstructive sleep apnea (adult) (pediatric) Cervical paraspinal muscle spasm Spasm of muscle Mood disorder, drug-induced (CMS/HCC) Drug-induced mood disorder Neurogenic pain Shift work sleep disorder Circadian rhythm sleep disorder, shift work type MS (multiple sclerosis) (CMS/HCC)- Primary Multiple sclerosis CAN (obstructive sleep apnea) Obstructive sleep apnea (adult) (pediatric) Cervical paraspinal muscle spasm Spasm of muscle Neurogenic pain Shift work sleep disorder Circadian rhythm sleep disorder, shift work type Migraine without aura and without status migrainosus, not intractable (CMS/HCC) Migraine without aura, intractable, with status migrainosus (CMS/HCC)- Primary Shift work sleep disorder Circadian rhythm sleep disorder, shift work type MS (multiple sclerosis) (CMS/HCC) Multiple sclerosis CAN (obstructive sleep apnea) Obstructive sleep apnea (adult) (pediatric) Neurogenic pain Cervical paraspinal muscle spasm Spasm of muscle Migraine without aura, intractable, with status migrainosus (CMS/HCC)- Primary CAN (obstructive sleep apnea) Obstructive sleep apnea (adult) (pediatric) MS (multiple sclerosis) (CMS/HCC) Multiple sclerosis Neurogenic pain Cervical paraspinal muscle spasm Spasm of muscle Shift work sleep disorder Circadian rhythm sleep disorder, shift work type documented in this encounter [facility] HealthcareEvaluation note* Diagnosis Acute bilateral otitis media- Primary Acute conjunctivitis of left eye, unspecified acute conjunctivitis type COVID-19 Shortness of breath Acute cough Wheezing documented in this encounter [facility] HealthcareEvaluation note* Diagnosis MS (multiple sclerosis) (CMS/HCC)- Primary Multiple sclerosis Migraine without aura and without status migrainosus, not intractable (CMS/HCC) CAN (obstructive sleep apnea) Obstructive sleep apnea (adult) (pediatric) Cervical paraspinal muscle spasm Spasm of muscle Mood disorder, drug-induced (CMS/HCC) Drug-induced mood disorder Neurogenic pain Shift work sleep disorder Circadian rhythm sleep disorder, shift work type MS (multiple sclerosis) (CMS/HCC)- Primary Multiple sclerosis CAN (obstructive sleep apnea) Obstructive sleep apnea (adult) (pediatric) Cervical paraspinal muscle spasm Spasm of muscle Neurogenic pain Shift work sleep disorder Circadian rhythm sleep disorder, shift work type Migraine without aura and without status migrainosus, not intractable (CMS/HCC) Migraine without aura, intractable, with status migrainosus (CMS/HCC)- Primary Shift work sleep disorder Circadian rhythm sleep disorder, shift work type MS (multiple sclerosis) (CMS/HCC) Multiple sclerosis CAN (obstructive sleep apnea) Obstructive sleep apnea (adult) (pediatric) Neurogenic pain Cervical paraspinal muscle spasm Spasm of muscle Migraine without aura, intractable, with status migrainosus (CMS/HCC)- Primary CAN (obstructive sleep apnea) Obstructive sleep apnea (adult) (pediatric) MS (multiple sclerosis) (CMS/HCC) Multiple sclerosis Neurogenic pain Cervical paraspinal muscle spasm Spasm of muscle Shift work sleep disorder Circadian rhythm sleep disorder, shift work type Otitis of right ear- Primary Nausea Nausea alone documented in this encounter [facility] note* Diagnosis MS (multiple sclerosis) (CMS/HCC)- Primary Multiple sclerosis Migraine without aura and without status migrainosus, not intractable (CMS/HCC) CAN (obstructive sleep apnea) Obstructive sleep apnea (adult) (pediatric) Cervical paraspinal muscle spasm Spasm of muscle Mood disorder, drug-induced (CMS/HCC) Drug-induced mood disorder Neurogenic pain Shift work sleep disorder Circadian rhythm sleep disorder, shift work type MS (multiple sclerosis) (CMS/HCC)- Primary Multiple sclerosis CAN (obstructive sleep apnea) Obstructive sleep apnea (adult) (pediatric) Cervical paraspinal muscle spasm Spasm of muscle Neurogenic pain Shift work sleep disorder Circadian rhythm sleep disorder, shift work type Migraine without aura and without status migrainosus, not intractable (CMS/HCC) Migraine without aura, intractable, with status migrainosus (CMS/HCC)- Primary Shift work sleep disorder Circadian rhythm sleep disorder, shift work type MS (multiple sclerosis) (CMS/HCC) Multiple sclerosis CAN (obstructive sleep apnea) Obstructive sleep apnea (adult) (pediatric) Neurogenic pain Cervical paraspinal muscle spasm Spasm of muscle Migraine without aura, intractable, with status migrainosus (CMS/HCC)- Primary CAN (obstructive sleep apnea) Obstructive sleep apnea (adult) (pediatric) MS (multiple sclerosis) (CMS/HCC) Multiple sclerosis Neurogenic pain Cervical paraspinal muscle spasm Spasm of muscle Shift work sleep disorder Circadian rhythm sleep disorder, shift work type MS (multiple sclerosis) (CMS/HCC) Multiple sclerosis Cervical paraspinal muscle spasm Spasm of muscle Mood disorder, drug-induced (CMS/HCC) Drug-induced mood disorder Migraine without aura and without status migrainosus, not intractable (CMS/HCC) Neurogenic pain Shift work sleep disorder Circadian rhythm sleep disorder, shift work type documented in this encounter [facility]* Diagnosis MS (multiple sclerosis) (CMS/HCC)- Primary Multiple sclerosis Migraine without aura and without status migrainosus, not intractable (CMS/HCC) CAN (obstructive sleep apnea) Obstructive sleep apnea (adult) (pediatric) Cervical paraspinal muscle spasm Spasm of muscle Mood disorder, drug-induced (CMS/HCC) Drug-induced mood disorder Neurogenic pain Shift work sleep disorder Circadian rhythm sleep disorder, shift work type MS (multiple sclerosis) (CMS/HCC)- Primary Multiple sclerosis CAN (obstructive sleep apnea) Obstructive sleep apnea (adult) (pediatric) Cervical paraspinal muscle spasm Spasm of muscle Neurogenic pain Shift work sleep disorder Circadian rhythm sleep disorder, shift work type Migraine without aura and without status migrainosus, not intractable (CMS/HCC) Migraine without aura, intractable, with status migrainosus (CMS/HCC)- Primary Shift work sleep disorder Circadian rhythm sleep disorder, shift work type MS (multiple sclerosis) (CMS/HCC) Multiple sclerosis CAN (obstructive sleep apnea) Obstructive sleep apnea (adult) (pediatric) Neurogenic pain Cervical paraspinal muscle spasm Spasm of muscle Migraine without aura, intractable, with status migrainosus (CMS/HCC)- Primary CAN (obstructive sleep apnea) Obstructive sleep apnea (adult) (pediatric) MS (multiple sclerosis) (CMS/HCC) Multiple sclerosis Neurogenic pain Cervical paraspinal muscle spasm Spasm of muscle Shift work sleep disorder Circadian rhythm sleep disorder, shift work type Acute non-recurrent maxillary sinusitis- Primary Acute right otitis media documented in this encounter [facility]* Diagnosis MS (multiple sclerosis) (HCC)- Primary Multiple sclerosis Migraine without aura and without status migrainosus, not intractable CAN (obstructive sleep apnea) Obstructive sleep apnea (adult) (pediatric) Cervical paraspinal muscle spasm Spasm of muscle Mood disorder, drug-induced (HCC) Drug-induced mood disorder Neurogenic pain Shift work sleep disorder Circadian rhythm sleep disorder, shift work type MS (multiple sclerosis) (HCC)- Primary Multiple sclerosis CAN (obstructive sleep apnea) Obstructive sleep apnea (adult) (pediatric) Cervical paraspinal muscle spasm Spasm of muscle Neurogenic pain Shift work sleep disorder Circadian rhythm sleep disorder, shift work type Migraine without aura and without status migrainosus, not intractable Migraine without aura, intractable, with status migrainosus- Primary Shift work sleep disorder Circadian rhythm sleep disorder, shift work type MS (multiple sclerosis) (HCC) Multiple sclerosis CAN (obstructive sleep apnea) Obstructive sleep apnea (adult) (pediatric) Neurogenic pain Cervical paraspinal muscle spasm Spasm of muscle Migraine without aura, intractable, with status migrainosus- Primary CAN (obstructive sleep apnea) Obstructive sleep apnea (adult) (pediatric) MS (multiple sclerosis) (HCC) Multiple sclerosis Neurogenic pain Cervical paraspinal muscle spasm Spasm of muscle Shift work sleep disorder Circadian rhythm sleep disorder, 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, shift work type Neurogenic pain Mood disorder, drug-induced (HCC) Drug-induced mood disorder Cervical paraspinal muscle spasm Spasm of muscle MS (multiple sclerosis) (HCC) Multiple sclerosis Migraine without aura, intractable, with status migrainosus- Primary Cervical paraspinal muscle spasm Spasm of muscle MS (multiple sclerosis) (HCC) Multiple sclerosis Neurogenic pain CAN (obstructive sleep apnea) Obstructive sleep apnea (adult) (pediatric) Shift work sleep disorder Circadian rhythm sleep disorder, shift work type documented in this encounter [facility]* Diagnosis MS (multiple sclerosis) (HCC)- Primary Multiple sclerosis Migraine without aura and without status migrainosus, not intractable CAN (obstructive sleep apnea) Obstructive sleep apnea (adult) (pediatric) Cervical paraspinal muscle spasm Spasm of muscle Mood disorder, drug-induced (HCC) Drug-induced mood disorder Neurogenic pain Shift work sleep disorder Circadian rhythm sleep disorder, shift work type MS (multiple sclerosis) (HCC)- Primary Multiple sclerosis CAN (obstructive sleep apnea) Obstructive sleep apnea (adult) (pediatric) Cervical paraspinal muscle spasm Spasm of muscle Neurogenic pain Shift work sleep disorder Circadian rhythm sleep disorder, shift work type Migraine without aura and without status migrainosus, not intractable Migraine without aura, intractable, with status migrainosus- Primary Shift work sleep disorder Circadian rhythm sleep disorder, shift work type MS (multiple sclerosis) (HCC) Multiple sclerosis CAN (obstructive sleep apnea) Obstructive sleep apnea (adult) (pediatric) Neurogenic pain Cervical paraspinal muscle spasm Spasm of muscle Migraine without aura, intractable, with status migrainosus- Primary CAN (obstructive sleep apnea) Obstructive sleep apnea (adult) (pediatric) MS (multiple sclerosis) (HCC) Multiple sclerosis Neurogenic pain Cervical paraspinal muscle spasm Spasm of muscle Shift work sleep disorder Circadian rhythm sleep disorder, shift work type Migraine without aura, intractable, with status migrainosus- Primary Cervical paraspinal muscle spasm Spasm of muscle MS (multiple sclerosis) (HCC) Multiple sclerosis Neurogenic pain CAN (obstructive sleep apnea) Obstructive sleep apnea (adult) (pediatric) Shift work sleep disorder Circadian rhythm sleep disorder, shift work type documented in this encounter [facility]* Diagnosis MS (multiple sclerosis) (HCC)- Primary Multiple sclerosis Migraine without aura and without status migrainosus, not intractable CAN (obstructive sleep apnea) Obstructive sleep apnea (adult) (pediatric) Cervical paraspinal muscle spasm Spasm of muscle Mood disorder, drug-induced (HCC) Drug-induced mood disorder Neurogenic pain Shift work sleep disorder Circadian rhythm sleep disorder, shift work type MS (multiple sclerosis) (HCC)- Primary Multiple sclerosis CAN (obstructive sleep apnea) Obstructive sleep apnea (adult) (pediatric) Cervical paraspinal muscle spasm Spasm of muscle Neurogenic pain Shift work sleep disorder Circadian rhythm sleep disorder, shift work type Migraine without aura and without status migrainosus, not intractable Migraine without aura, intractable, with status migrainosus- Primary Shift work sleep disorder Circadian rhythm sleep disorder, shift work type MS (multiple sclerosis) (HCC) Multiple sclerosis CAN (obstructive sleep apnea) Obstructive sleep apnea (adult) (pediatric) Neurogenic pain Cervical paraspinal muscle spasm Spasm of muscle Migraine without aura, intractable, with status migrainosus- Primary CAN (obstructive sleep apnea) Obstructive sleep apnea (adult) (pediatric) MS (multiple sclerosis) (HCC) Multiple sclerosis Neurogenic pain Cervical paraspinal muscle spasm Spasm of muscle Shift work sleep disorder Circadian rhythm sleep disorder, shift work type Migraine without aura, intractable, with status migrainosus- Primary Cervical paraspinal muscle spasm Spasm of muscle MS (multiple sclerosis) (HCC) Multiple sclerosis Neurogenic pain CAN (obstructive sleep apnea) Obstructive sleep apnea (adult) (pediatric) Shift work sleep disorder Circadian rhythm sleep disorder, shift work type Migraine without aura, intractable, with status migrainosus- Primary Cervical paraspinal muscle spasm Spasm of muscle MS (multiple sclerosis) (HCC) Multiple sclerosis Neurogenic pain Shift work sleep disorder Circadian rhythm sleep disorder, shift work type CAN (obstructive sleep apnea) Obstructive sleep apnea (adult) (pediatric) documented in this encounter [facility] HealthcareHistory general Narrative - Reported* Type Description Date Medical History multiple sclerosis Medical History Seizure disorder Medical History Scoliosis Medical History Spinal stenosis Medical History migraine headache Surgical History C section Surgical History tubal ligation Surgical History HYSTERECTOMY/PARTIAL Hospitalization History child Hospitalization History PID Hospitalization History bronchitis [employer] Other Summary Purpose Family History Relationship Condition Age at Onset Recorded Date/T [place] father Malignant neoplasm Unknown Unknown mother Hypothyroidism Unknown Advance Directives Advance Directive Response Recorded Date/ Time Advance Directives No September 16, 2017 4:16pm Additional Source Comments INFORMATION SOURCE (unrecogn ized section and content) DATE CREATED AUTHOR 04/19/2022 [facility] DATE CREATED AUTHOR AUTHOR'S ORGANIZ ATION 02/05/2024 [facility] DATE CREATED AUTHOR AUTHOR'S ORGANIZ ATION 04/18/2024 [facility] DATE CREATED AUTHOR AUTHOR'S ORGANIZ ATION 06/03/2025 [facility] EPIC REASON FOR VISIT (unrecogniz ed section and content) Reason Onset Date Comments Community Outreach 01/23/2024 [facility] Ref erral/Mammogram Reason Comments Multiple Sclerosis Reason Comments Follow-up Pt went to 4 dx covid rx for prednisone taper given pt was given off work until today--07/30/24 Covid-19 Home Monitoring Visit Reason Onset Date Comments Med Refill 12/01/2024 Reason Comments Med Refill Reason Comments Migraine Source Comments (unrecognize d section and content) In the event this informatio n is protected by the Federal Confidentiality of Alcohol and Drug Abuse Patient Records regulations: The Federal rules restrict any use of the information to criminally investigate or prosecute any alcohol or drug abuse patient.[facility] Care Teams (unrecognized sec tion and content) Team Status: Active Member Role Status Dates Vikki Toribio MD Primary Care Provider Active Team Status: Inactive Member Role Status Dates Vikki Toribio MD Primary Care Provider Active S tart: July 26, 2024 End: July 26, 2024 Juliana Causey APRN Attending Provider Active Start: July 26, 2024 End: July 26, 2024 Computer Applications Engineer Relationship Specialty Start Date End Date Vikki Toribio MD [address] [facility] [address] [place] [address] PCP - General Family Medicine 03/19/23 Computer Applications Engineer Relationship Specialty Start Date End Date Vikki Toribio MD [address] [place] [address] [place] [address] PCP - General Family Medicine 03/19/23 Computer Applications Engineer Relationship Specialty Start Date End Date Vikki Toribio MD [address] [place] [address] [place] [address] PCP - General Family Medicine 03/19/23 Computer Applications Engineer Relationship Specialty Start Date End Date Vikki Toribio MD [address] [facility] [address] [place] [address] PCP - General Family Medicine 03/19/23 Computer Applications Engineer Relationship Specialty Start Date End Date Vikki Toribio MD [address] [facility] [address] [place] [address] PCP - General Family Medicine 03/19/23 Computer Applications Engineer Relationship Specialty Start Date End Date Vikki Toribio MD [address] [facility] [address] [place] [address] PCP - General Family Medicine 03/19/23 Computer Applications Engineer Relationship Specialty Start Date End Date Vikki Toribio MD [address] [place] [address] [place] [address] PCP - General Family Medicine 03/19/23 Computer Applications Engineer Relationship Specialty Start Date End Date Vikki Toribio MD [address] [place] [address] [place] [address] PCP - General Family Medicine 03/19/23 Computer Applications Engineer Relationship Specialty Start Date End Date Vikki Toribio MD [address] [place] [address] [place] [address] PCP - General Family Medicine 03/19/23 Computer Applications Engineer Relationship Specialty Start Date End Date Vikki Toribio MD [address] [facility] [address] [place] [address] PCP - General Family Medicine 03/19/23 Computer Applications Engineer Relationship Specialty Start Date End Date Vikki Toribio MD [address] [facility] [address] [place] [address] PCP - General Family Medicine 03/19/23 Computer Applications Engineer Relationship Specialty Start Date End Date Vikki Toribio MD [address] [facility] [address] [place] [address] PCP - General Family Medicine 03/19/23 Computer Applications Engineer Relationship Specialty Start Date End Date Vikki Toribio MD [address] [facility] [address] [place] [address] PCP - General Family Medicine 03/19/23 Goals (unrecognized section and content) Goals may be documented in a n alternate section FOR RECORDS PERTAINING TO PATIENTS WHO ARE OR HAVE BEEN ENROLLED IN A CHEMICAL DEPENDENCY/SUBSTANCEABUSE PROGRAM, SOME INFORMATION MAY BE OMITTED. This clinical summary was aggregated from multiple sources. Caution should be exercised in using it in the provision of clinical care. This summary normalizes information from multiple sources, and as a consequence, information in this document may materially change the coding, format and clinical context of patient data. In addition, data may be omitted in some cases. CLINICAL DECISIONS SHOULD BE BASED ON THE PRIMARY CLINICAL RECORDS. [employer] provides no warranty or guarantee of the accuracy or completeness of information in this document.
--- NOTE | 2025-06-25 06:56 | XR_ITS ---
[address] [address] Patient Name: NOMAN CULP MRN: [id number] date: 1970 Sex: F Assigned Patient Location: [facility] Current Patient Location: [facility] Accession/Order Number: [id number] Exam Date: 06/25/2025 08:21 Report Date: 06/25/2025 08:22 At the request of: NERI MOBLEY MD Procedure: XR elbow RT 2V RIGHT ELBOW - 2 views CLINICAL HISTORY: Right Elbow Contusion COMPARISON: None FINDINGS: No elbow joint effusion. Mild posterior soft tissue swelling. Olecranon spurring. No acute bony process. XR/XR elbow RT 2V IMPRESSION: OLECRANON SPURRING WITH MILD POSTERIOR SOFT TISSUE SWELLING. NO ACUTE BONY PROCESS. Impression dictated by: Faisal Glover Jr., D.OJuan Alberto 06/25/2025 8:22 AM Dictation Location: [place] [address] Electronically authenticated by: [id number] Date: 06/25/2025 08:22
== END 2025-06-25 06:48 | disposition home or self-care (01) ==
PROVIDERS: PCP Family Medicine; Visit Provider Preventive Medicine Preventive Medicine/Occupational Environmental Medicine
DX: S50.01XA Contusion of right elbow, initial encounter (principal); M77.8 Other enthesopathies, not elsewhere classified; M25.421 Effusion, right elbow
CPT/HCPCS: 73070